=== PATIENT | female | born 1955 | race Caucasian/White ===

== ENCOUNTER → 2023-08-05 14:13 | Outpatient (REF) | payer MEDICARE, BC, SELFPAY | LOC: HWRAD 14:13 | PROVIDERS: ATTENDING PHYSICIAN Thoracic Surgery (Cardiothoracic Vascular Surgery); FAMILY PHYSICIAN Family Medicine | DX: I25.10 Atherosclerotic heart disease of native coronary artery without angina pectoris (principal) | CPT/HCPCS: 71250 ==

== ENCOUNTER 2023-08-23 05:25 | Inpatient (IN) | payer MEDICARE, BC, SELFPAY ==
[2023-08-11 08:49] VITALS: BMI 50.2
[2023-08-11 09:38] LABS: % Basophils 0.8 % (0-2); % Immature Granulocytes 0.3 % (0-0.5); % Lymphocytes 18.9 % (20.5-51.1); % Monocytes 5.9 % (1.7-9.3); % Neutrophils 70.1 % (42.2-75.2); Absolute Basophils 0.1 10^3/uL (0-0.2); Absolute Eosinophils 0.4 10^3/uL (0-0.7); Absolute Lymphocytes 1.8 10^3/uL (1.2-3.4); Absolute Monocytes 0.6 10^3/uL (0.1-0.6); Absolute Neutrophils 6.7 10^3/uL (1.4-6.5); Hemoglobin 12.9 g/dL (12.0-16.0); Mean Corp Hgb Conc. 31.5 g/dL (33.0-37.0); Mean Corpuscular Hgb 29.2 pg (27.0-31.0); Mean Corpuscular Volume 92.8 fL (81.0-99.0); Mean Platelet Volume 12.7 fL (7.4-10.4); Nucleated Red Blood Cells % 0 %; Platelet Count 254 10^3/uL (130-400); Red Blood Cell Count 4.42 10^6/uL (4.20-5.40); White Blood Cell Count 9.6 10^3/uL (4.8-10.8)
[2023-08-11 09:51] LABS: APTT 26.8 Sec (23.4-35.0); INR 0.99; PT 12.9 Sec (11.4-14.6)
[2023-08-11 09:59] LABS: ALT (SGPT) 11 U/L (0-35); AST (SGOT) 16 U/L (14-36); Albumin 4.2 g/dl (3.5-5.0); Alkaline Phosphatase 155 U/L (38-126); Blood Urea Nitrogen 28 mg/dl (7-17); Carbon Dioxide 31 mmol/L (22-30); Chloride 99 mmol/L (98-107); Direct Bilirubin 0.3 mg/dl (0.0-0.4); Estimated Creatinine Clearance 57 ml/min; Glucose 104 mg/dl (70-99); Potassium 5.1 mmol/L (3.5-5.1); Sodium 141 mmol/L (135-145); Total Bilirubin 0.4 mg/dl (0.2-1.3); Total Protein 7.5 g/dl (6.3-8.2)
[2023-08-11 09:59] LABS: Urine Albumin Trace (Neg - Trace); Urine Bilirubin 1+ (Negative); Urine Character Clear (Clear); Urine Color Yellow; Urine Glucose Negative (Negative); Urine Ketone Negative (Negative); Urine Leukocyte Negative (Negative); Urine Nitrite Negative (Negative); Urine Occult Blood Negative (Negative); Urine Specific Gravity 1.025 (<1.030); Urine Urobilinogen Negative (Neg - 1+)
--- NOTE | 2023-08-11 10:41 | CM ---
CM met w/ patient and spouse, Alok during PATs for planned CABG 08/22.
Pt. informs that she resides w/ spouse in a private, 2 story home w/ 3-4 LENA. Patient stays on the first level, sleeps on the couch, has a commode. Patient ambulates with RW at baseline.
Pt. had a recent stay in April, at [facility] following her heart attack hospitalization @ [facility]. She reports a decent experience there. She refused any VN at time of DC from that SNF.
Reviewed pre and post op routines.
Soap, shower instructions and Cardiac Surg booklet provided.
Discussed post op restrictions to include lifting, driving, flying and sternal precautions.
Reviewed post op MD appointments, Cardiac Rehab and visit from [facility] Transitional [facility] RN.
Plan is for CABG 08/22.
DC plan will depend on functional mobility post op. Goal is for home w/ [facility] Transitional Care RN but CM to monitor need for rehab.
CM to follow.
[2023-08-11 11:50] LABS: Glycohemoglobin (HgbA1c) 5.9 % (4.0-5.6)
[2023-08-23] VITALS (15 sets, daily range): BP systolic 85–133; BP diastolic 53–87; PULSE 2–75; BMI 49.0
[2023-08-23] MEDS: MAGNESIUM OXIDE 500 MG PO (05:53)
[2023-08-23] MEDS: LOPRESSOR 25 MG PO (05:53)
[2023-08-23] MEDS: PROTONIX 40 MG PO (05:53)
[2023-08-23] MEDS: BACTROBAN 2% OINTMENT 1 APPLIC NASAL ×2 (05:54→21:23)
--- NOTE | 2023-08-23 06:39 | W.CVOR.SURPR ---
CVOR Surgeon Immed Pre Op
-
I have examined this patient prior to performance of the scheduled procedure.
The patient's condition is unchanged from the time of the dictated/written History and
Physical and the patient is able to undergo the scheduled procedure.
CABG - will assess OM target, looks small on cath
Plan for ISIS E due to elevated CHADsVasc score of 3
[2023-08-23 07:11] LABS: ACT+ - POC 98 Seconds (82-134)
[2023-08-23 07:21] LABS: B.E. - POC -0.2 mmol/L; Glucose - POC 119 mg/dl (65-99); HCO3 - POC 26 mmol/L (21-29); Hematocrit - POC 44 % PCV (37-47); Hemodilution- POC No; Hemoglobin Calculated - POC 14.8; O2 Saturation %Calculated-POC 99.8 5 (92-96); PCO2 - POC 44 mmHg (35-45); PO2 - POC 231 mmHg (80-100); POC Comment PRE; Sodium - POC 144 mmol/L (135-145); pH - POC 7.37 (7.35-7.45)
[2023-08-23 07:23] LABS: Urine Albumin Negative (Neg - Trace); Urine Bilirubin Negative (Negative); Urine Character Clear (Clear); Urine Color Yellow; Urine Glucose Negative (Negative); Urine Ketone Negative (Negative); Urine Leukocyte Negative (Negative); Urine Nitrite Negative (Negative); Urine Occult Blood Negative (Negative); Urine Specific Gravity 1.025 (<1.030); Urine Urobilinogen Negative (Neg - 1+)
[2023-08-23 09:26] LABS: ACT+ - POC 814 Seconds (82-134)
[2023-08-23 09:43] LABS: B.E. - POC 3.1 mmol/L; Glucose - POC 166 mg/dl (65-99); HCO3 - POC 28 mmol/L (21-29); Hematocrit - POC 29 % PCV (37-47); Hemodilution- POC Yes; Ionized Calcium - POC 0.97 mmol/L (1.12-1.27); PCO2 - POC 41 mmHg (35-45); PO2 - POC 384 mmHg (80-100); POC Comment CPB; Potassium - POC 4.9 mmol/L (3.6-5.0); Sodium - POC 140 mmol/L (135-145); pH - POC 7.44 (7.35-7.45)
[2023-08-23 09:49] LABS: ACT+ - POC 676 Seconds (82-134)
[2023-08-23 10:15] LABS: ACT+ - POC 618 Seconds (82-134)
[2023-08-23 10:18] LABS: B.E. - POC 1.6 mmol/L; Glucose - POC 206 mg/dl (65-99); HCO3 - POC 26 mmol/L (21-29); Hematocrit - POC 33 % PCV (37-47); Hemodilution- POC Yes; Hemoglobin Calculated - POC 11.3; Ionized Calcium - POC 1.05 mmol/L (1.12-1.27); O2 Saturation %Calculated-POC 99.4 5 (92-96); PCO2 - POC 42 mmHg (35-45); PO2 - POC 153 mmHg (80-100); POC Comment REWARM; Potassium - POC 4.9 mmol/L (3.6-5.0); Sodium - POC 140 mmol/L (135-145); pH - POC 7.41 (7.35-7.45)
[2023-08-23 10:50] LABS: ACT+ - POC 126 Seconds (82-134)
[2023-08-23 10:53] LABS: B.E. - POC -0.8 mmol/L; Glucose - POC 187 mg/dl (65-99); HCO3 - POC 24 mmol/L (21-29); Hematocrit - POC 34 % PCV (37-47); Hemodilution- POC Yes; Hemoglobin Calculated - POC 11.5; Ionized Calcium - POC 1.28 mmol/L (1.12-1.27); O2 Saturation %Calculated-POC 99.9 5 (92-96); PCO2 - POC 41 mmHg (35-45); PO2 - POC 345 mmHg (80-100); POC Comment POST; Potassium - POC 4.3 mmol/L (3.6-5.0); Sodium - POC 142 mmol/L (135-145); pH - POC 7.38 (7.35-7.45)
--- NOTE | 2023-08-23 11:30 | W.PN.CT.SURG ---
CT Surgery Operative Note
-
CARDIAC SURGERY OPERATIVE REPORT
Preoperative Diagnosis: Multivessel Coronary Artery Disease with prior NSTEMI
Postoperative Diagnosis: Same
Procedure(s) Performed:
1. Standard sternotomy with aortic and right atrial cannulation
2. Coronary artery bypass grafting x 3 (In situ DYER to LAD, Ao to RSVG to high diagonal, Ao to RSVG to OM)
3. Endoscopic vein harvesting of right lower extremity
4. Rigid sternal fixation
5. Transesophageal echocardiography
6. Left atrial appendage exclusion
7. Placement of temporary ventricular pacing wires
Date of Surgery: 08/23/2023
Comorbidities:
1. Recent NSTEMI status post PCI and stenting to the RCA
2. Multivessel coronary disease involving the proximal LAD
3. Morbidly obese with a BMI of 49
4. Type 2 diabetes mellitus
5. Hypertension
6. Hyperlipidemia
7. ANANTH
8. Ischemic cardiomyopathy, LVEF of 45% with apical hypokinesis
9. Spinal stenosis with mobility issues
Attending Surgeon: Gabino Kessler MD, MS
Assistants: Amy Ace PA-C (present and necessary to assistant store manager trainee, endoscopic vein harvest, retraction, suction, exposure, suture management, and wound closure under my direction)
Anesthesiology: Hermes Villela MD and Lin [employer] & Ce Belcher CRNA
Scrub and Circulating RNs: Zara Parks RN, Nikkie Valenzuela RN
Net Finisher: Aristides Kellogg CCP
Anesthesia: GETA
EBL: per perfusion records
Products: None
CPB Time: 73 minutes
Aortic Cross Clamp Time: 61 minutes
Indication(s) for Procedures: This is a 68-year-old female who recently had an NSTEMI requiring PCI and stenting to the right coronary system in April 2023. She had residual LAD disease as well as mid circumflex disease. Due to her lesion set,
she met class I indication for surgical intervention. Her STS risk was calculated to be approximately 3.5% of mortality within 30 days. She accepted those risks and so we proceeded with surgery. Given her elevated [id number] score of over 3,
left atrial appendage was planned for exclusion to reduce risk of CVA.
Conduit(s) Quality:
DYER -excellent/bifurcated relatively early of the had enough length to reach the distal LAD at the lower diagonal system, excellent flow probe numbers with a mean flow of approximately 30-40 and a pulsatility index of less than 3
RSVG -excellent/uniform, although a little bit thin-walled, minor varicosities
Target(s) Quality:
High diagonal-excellent/disease proximally, had excellent flow on flow probe assessment as well as test dosing of antegrade with a flow of approximately 50 to 60 cc a minute at a pressure of 80 mmHg
OM -good/good flow probe numbers, antegrade cardioplegia flow of approximately 40 to 50 cc a minute at a pressure of 80 mmHg
LAD -excellent/intramyocardial, tortuous, was able to find a spot distally that accommodated the vessel. There is excellent visual flow in the LAD territory with backfilling into lower diagonal system upon release of the bulldog clamp
Implant: 35 mm clip, serial #[id number], 4-hole 60 well-appearing right for the manubrium (14 mm screws x 4), for hold square plate for the body and lower portion of the sternum (12 mm screws x 8)
Findings: Left ventricular ejection fraction preoperatively was approximately 45% with global hypokinesis. Following surgery EF did improve to approximate 55% without any regional wall motion abnormalities. Her left atrial appendage was verified
to be free of any thrombus or debris preoperatively and found to be flush with no residual flow on color Doppler following exclusion. The DYER was harvested in a skeletonized fashion. Following bypass grafting, test dose cardioplegia was given down
each distal and confirmed patency and hemostasis. She did not require any pacing following surgery, she regained her sinus rhythm with a first-degree AV block. She did not require any inotropic support coming off surgery and in fact was quite
hypertensive starting off the case. No blood products were given.
Description of Procedure: The patient was taken to the operating room. Their identity and procedure to be performed were verified and they were positioned supine on the operating table. Induction via general anesthesia with endotracheal intubation
was performed and central venous access and arterial monitoring were inserted. A preoperative transesophageal echocardiogram was performed to assess cardiac function and valvular function. The patient was then prepped and draped from chin to feet in
a sterile fashion. A preoperative time-out was performed with all members of the team present. A midline chest incision was performed along with median sternotomy. Simultaneous endoscopic access of the right lower extremity for saphenous vein
harvest was obtained along with administration of an initial 5,000 units of IV heparin. A RulTract sternal retractor was positioned to exposure the left internal mammary bed. The mammary was harvested and found to have good flow. A bulldog clamp was
applied to the distal end of the mammary after dividing it. It was wrapped in a papaverine soaked RayTec and replaced back into the left hemithorax. The RulTract was exchanged for a median sternal retractor. The innominate vein was isolated. Full
heparinization was given (a total of 50,000 units). We created a pericardial well. The aortic cannulation site was chosen where it was soft, pliable, and free of calcium. Cannulation was performed with an arterial cannula in the ascending aorta and
a triple-stage venous cannula through the right atrial appendage. The arterial cannula line had an appropriate bounce and correlating pressures with test dosing. Next, a root vent/antegrade cannula was inserted into the ascending aorta. The ACT was
confirmed to be over 400 and retrograde autologous priming was performed before commencing cardiopulmonary bypass. The pulmonary artery was away from the aorta to facilitate a clamp site. The aortic cross-clamp was placed after decreasing
the flow on the bypass and mean arterial pressure. A total of 1.2L initial dose of antegrade Del-Nido cardioplegia solution was given and planned for re-dosing every 75 minutes as necessary. There was rapid electro-mechanical arrest of the heart at
300 cc of cardioplegia. The left ventricle was observed for distention on echocardiogram and manual palpation. Cold slush was placed into a sponge and topically on the RV while we systemically cooled to 34 degrees centigrade.
With the heart arrested, it was medialized and the left atrial appendage was verified. The ligament of David was divided using electrocautery. The clip was applied flush the base of the left atrial appendage. I positioned the heart to expose
the OM vessel that appeared to be small on left heart cath. It appeared to be a decent target here and reality. A newtok blade was used to expose the coronary and perform the arteriotomy. Coronary Head scissors were used to enlarge the incision.
The saphenous vein was trimmed and beveled to an appropriate size. The distal anastomosis was performed using 7-0 prolene in an end-to-side fashion. Antegrade cardioplegia was administered into the graft. Appropriate hemostasis and flow were
confirmed. The graft was measured for length to the aorta and cut. A suitable site on the high diagonal was chosen. We dissected and prepared the distal target in a similar fashion. An end-to-side anastomosis was created with a 7-0 prolene.
Antegrade cardioplegia was administered into the graft. Appropriate hemostasis and flow were confirmed. The graft was measured for length to the aorta and cut. A suitable target on the distal left anterior descending was identified. We dissected and
prepared the distal target in a similar fashion. We retrieved the DYER from the chest and created a pericardial opening while being cognizant of the phrenic nerve to facilitate the course of the mammary. The distal end of the mammary was prepped and
beveled to size. We verified orientation and length of the MONI and found brisk flow. An end-to-side anastomosis was created with a 7-0 prolene. We temporarily released the bulldog clamp on the mammary to inspect flow. Perfusion to the LAD territory
was visualized and hemostasis was confirmed. The bull clamp was replaced on the mammary. The heart was filled and the root was distended with antegrade cardioplegia to make final assessment of graft length and orientation. We created two aortotomies
using a #11 blade then a 4.0mm aortic punch. The proximal anastomoses were created in an end-to-side fashion using 6-0 prolene. At the the same time, we re-warmed to 36.5 degrees centigrade. The bulldog clamp was removed from the mammary. Temporary
bipolar ventricular pacing wires were placed on the base of the right ventricle. The patient was placed in a Trendelenburg position and flows on bypass were lowered. The aortic cross clamp was removed and flows were slowly brought back up. All
bypass grafts were inspected and were free from kinking or twisting. The distal and proximal anastomoses appeared hemostatic. Once transesophageal echocardiography appeared satisfactory for de-airing, the flows were temporarily lowered for root
vent removal. After verifying acceptable parameters, we initiated weaning from cardiopulmonary bypass. Once we were off cardiopulmonary bypass, the venous cannula was clamped and removed. A test dose of protamine was administered and the patient was
monitored for any adverse reaction before resuming protamine. Once half of the protamine dose was delivered, pump suckers were turned off and the systolic blood pressure was lowered for aortic decannulation. The aortic cannula was removed and
pursestrings were tied down. All cannulation sites were oversewn with a 4-0 prolene. The mammary bed was inspected and hemostasis was confirmed. Once the mediastinum was hemostatic, 19Fr Sukhdev drain was placed in the left pleural cavity and two 24Fr
Sukhdev drains were placed within the pericardium. The sternum was approximated with 3 #7 and 3 #8 double stainless steel wires. The fascia was also elevated off the anterior table of the sternum. Rigid fixation was performed using the above listed
plates. Fascia was approximated with #1 vicryl suture. The subcutaneous, dermis and epidermis were closed in layers in a running fashion. The skin wound was cleansed and dressed wound VAC dressing.
All instrument, sponge, and needle counts were confirmed to be correct x 2 at the end of the operation. The patient was transferred to the cardiac intensive care unit in critical but stable condition.
I, Dr. Gabino Kessler, was present, scrubbed for, and performed all critical elements of this procedure.
Gabino Kessler MD, MS
Cardiothoracic Surgeon
[facility]
This operative dictation was created using the [employer] dictation system. Please excuse any grammatical, typographical, or 'sound alike' errors
--- NOTE | 2023-08-23 11:45 | PTCARENOTE ---
Patient received from CVOR status post CABG x 3 gonzalez to lad and RSVG to OM. Remains intubated/vented and sedated on precedex gtt. See flowrecord for vasoactive gtt titrations. Sinus bradycardia with 1st degree hb with rates in the high 50's.
Initial CI was 1.19: MAYCO Fortune aware and will obtain an MVO2 for correlation. Dr. Kessler also here: cxr indicated R mainsterm intubation with ett secured at 25cm at lip level: ETT pulled back by Dr. Kessler at bedside to 21cm at lip level and cxr
repeated at bedside to verify the proper placement of ett. Respiratory aware of changes. Chest tube x 3 and FALGUNI luca from chest (OK function flashing). Chest tubes 1 med to 1 pleur evac to -20cm wall suction and right and left pleural chest tube
to 1 pleur evac and -20cm suction: no air leak and no dumping. Right leg svg site leg incision intact and wrapped with ebony wrap. Palpable bilateral peripheral pulses.
[2023-08-23] MEDS: ANCEF 15 MG IV (11:50)
[2023-08-23 11:52] LABS: Glucose - Point of Care 188 mg/dl (70-99)
[2023-08-23 12:03] LABS: B.E. -2.5 mmol/L; HCO3 23.7 mmol/L (21-28); Hematocrit 32.4 % (37.0-47.0); Hemoglobin 10.6 g/dL (12.0-16.0); O2 Saturation % 99.3 % (94-98); PCO2 46 mmHg (32-35); PO2 103 mmHg (83-108); Platelet Count 211 10^3/uL (130-400); Potassium 4.7 mMOL/L (3.5-5.1); Sodium 136 mMOL/L (136-145); pH 7.32 (7.35-7.45)
[2023-08-23 12:06] LABS: O2 Therapy VENT
[2023-08-23 12:11] LABS: INR 1.31; PT 16.1 Sec (11.4-14.6)
[2023-08-23 12:12] LABS: APTT 27.7 Sec (23.4-35.0)
[2023-08-23 12:16] LABS: Blood Urea Nitrogen 13 mg/dl (7-17); Estimated Creatinine Clearance 100 ml/min; Glucose 170 mg/dl (70-99); Magnesium 2.7 mg/dl (1.6-2.3)
[2023-08-23 12:38] LABS: Mixed Venous O2 Saturation 55.9 %
--- NOTE | 2023-08-23 12:40 | PTCARENOTE ---
CI's continue to be low and MVO2 was 55.9 for verification. New orders received. Dobutrex intiated at 2mcg/kg/min per order a will await a response with CI/MVO2 as per cvicu protocol.
[2023-08-23] MEDS: NSS 500 IV (12:50)
[2023-08-23] MEDS: DOBUTREX 500 MG 250 IV (12:51)
[2023-08-23 13:04] LABS: Glucose - Point of Care 151 mg/dl (70-99)
--- NOTE | 2023-08-23 13:19 | W.PN.UPDATE ---
Update Note
Progress Note Update
-year-old female was electively admitted on 08/23/2023 for CABG due to triple-vessel coronary disease.
IV fluids: 2300
U.O.:� 400
Blood:� none
Wires:� V-wires
Inotropes:� none
Pressors:� Levophed on/off
Sedatives:� Precedex
�
NEURO: sedated on Precedex, pupils +3mm B/L
RESP: #8OT @24cm> 550/60%/14/5. Lungs clear B/L. 1 mediastinal (0cc on arrival) and R/L pleural (0cc on arrival) chest tubes to -20cm suction. Sanguineous drainage
CV: RRR +S1, S2, no S3, no�rub, no murmur. Dermabond to median sternotomy. RIJ w/Frannie locked @ 45cm. PA 38/21; CVP 17; CI 1.19: MVO2 55%
ABD: obese, round, soft, no BS
EXT: no edema, +1/4 DP pulses B/L, no femoral bruit, RLE GUERLINE wrap intact; left radial A-line intact
: Joseph with clear yellow urine
�
A/P: POD #0 s/p Coronary artery bypass grafting x 3 (DYER to LAD, SVG to high diagonal, SVG to OM), Left atrial appendage exclusion #35mm clip. Rigid sternal fixation
GERALD: EF�43% pre and 55% post procedure
- wean and extubate
#CAD
- Add Dobutamine for low CI/MVO2
- will require ASA/Plavix, statin
- beta uzma when off Dobutamine
�
# acute surgical blood loss anemia-expected
- trend CBC
�
�
# T2DM (A1C 5.9) w/metabolic syndrome (BMI 49) & hx gastric sleeve
- insulin infusion x 24h
- no oral meds
- t/c SGLT2i (on enaapril @ home)
�
# Spinal stenosis w/opioid tolerance
- continue home Percocet, Gabapentin
- family to bring in long acting Oxy (Xtampza 9mg BID)
# Anxiety/Depression
- resume home Duloxetine (total 90mg), Bupropion 150mg BID when tolerating orals
[2023-08-23] MEDS: PRECEDEX 100 IV (13:23)
[2023-08-23] MEDS: CYMBALTA DELAYED RELEASE PO ×2 (13:26→13:28)
--- NOTE | 2023-08-23 13:27 | CON.INTV ---
Consultation
Consultation Request
Date/Time Consultation Requested: 08/23/2023
Date/Time Consultation Performed: 08/23/2023
Requesting Provider: Dr. Kessler
Performing Provider: Dr. Gavin Camejo
Reason for Consultation: Postoperative ICU care, status post coronary artery bypass
Medical History
-
History of Present Illness:
68-year-old woman with history of multivessel coronary disease, prior stents. Ejection fraction of 45%. Electively admitted for revascularization. Underwent coronary artery bypass on 08/23/[address] Kessler.
Patient in the critical care unit. Intubated, mechanical ventilation per
Chest tube without significant air leak or excessive drainage
Records reviewed.
Patient able to provide history but appears comfortable on mechanical ventilation settings
Past Medical History
Past Medical History: Other (See assessment and plan section)
Social History
Tobacco: Former Smoker (Quit in April, [id number])
Alcohol: None
Drug: None
Living: With Family
Family History
Family History: Unable to Obtain
Allergies / Home Medications
Allergies
Allergy/AdvReac Type Severity Reaction Status Date / Time
No Known Allergies Allergy Unverified 08/10/23 13:26
Home Medications
�Medication �Instructions �Recorded �Confirmed �Last Taken �Type
Medical Cannibus 1 dose PO DAILY PRN pain, anxiety 08/10/23 08/23/23 08/22/23 20:00 History
aspirin 81 mg chewable tablet 81 mg PO DAILY 08/10/23 08/23/23 08/15/23 12:00 History
atorvastatin 40 mg tablet 40 mg PO DAILY 08/10/23 08/23/23 08/22/23 13:00 History
bupropion HCl 150 mg tablet,12 hr 150 mg PO BID 08/10/23 08/23/23 08/22/23 13:00 History
sustained-release
carvedilol 3.125 mg tablet 3.125 mg PO BID 08/10/23 08/23/23 08/22/23 13:00 History
cholecalciferol (vitamin D3) 25 25 mcg PO DAILY 08/10/23 08/23/23 08/15/23 12:00 History
mcg (1,000 unit) tablet (Vitamin
D3)
duloxetine 30 mg capsule,delayed 30 mg PO DAILY 08/10/23 08/23/23 Unknown History
release
duloxetine 60 mg capsule,delayed 60 mg PO DAILY 08/10/23 08/23/23 08/22/23 13:00 History
release
enalapril maleate 2.5 mg tablet 2.5 mg PO BID 08/10/23 08/23/23 08/15/23 13:00 History
famotidine 20 mg tablet 20 mg PO BID 08/10/23 08/23/23 08/22/23 13:00 History
furosemide 20 mg tablet 20 mg PO BID 08/10/23 08/23/23 08/22/23 13:00 History
gabapentin 100 mg capsule 200 mg PO QID 08/10/23 08/23/23 08/20/23 12:00 History
multivitamin 1 tab PO DAILY 08/10/23 08/23/23 08/15/23 12:00 History
oxycodone myristate 9 mg capsule 9 mg PO Q12H 08/10/23 08/23/23 08/22/23 09:00 History
sprinkle extended release 12
hr(DON'T CRUSH) (Xtampza ER)
oxycodone-acetaminophen 5 mg-325 1 tab PO Q6H Pain 08/10/23 08/23/23 08/22/23 09:00 History
mg tablet
ticagrelor 90 mg tablet (Brilinta) 90 mg PO BID 08/10/23 08/23/23 08/15/23 12:00 History
Review of Systems
Vitals / Labs / Diagnostic Testing
Vital Signs
Temp Pulse Resp BP Pulse Ox
96.4 F L 73 0 126/87 94
08/23/23 13:00 08/23/23 13:15 08/23/23 13:15 08/23/23 05:45 08/23/23 13:15
Lab Data
08/23/23 11:50
Laboratory Results
08/23/23
11:50
PT 16.1 H
INR 1.31
APTT 27.7
pH 7.32 L
pCO2 46 H
pO2 103
HCO3 23.7
O2 Delivery Level Vent
Diagnostic Testing:
Assessment
-
Status post coronary bypass 08/23/2023
Postoperative mechanical ventilation
Postoperative anemia
Conditions present prior admission:
Recent non-ST elevation myocardial infarction status post PCI
Ischemic cardiomyopathy ejection fraction 45%
Multivessel coronary artery disease
Morbid obesity
Type 2 diabetes
Hypertension
Hyperlipidemia
Obstructive sleep apnea
Chronic back pain with a spinal stenosis 6 mm lung nodule
Right upper lobe on CAT scan 08/05/2023
Plan recommendation:
She is doing well postop-currently on mechanical ventilation and appears comfortable.
ABG reviewed: Adequate ventilation and oxygenation
Continue SIMV mode with no change
Spontaneous breathing trial per protocol once sedation wears off.
Anemia noted-no evidence of acute bleeding
Follow H&H serially
Hemodynamics -continue to wean down inotropes as able to
Urinary output is adequate
Renal function is normal
Continue to follow hemodynamics via PA catheter.
Eventual diuresis
Chest tube with no excessive drainage-no air leak.
Chest x-ray reviewed: Right mainstem intubation. Mild asymmetric pulmonary edema.Left lung loss of volume.
ET tube readjusted.
Remain nothing by mouth
Head of the bed elevation
Lung nodule on CAT scan [id number] follow-up CT is recommended.
Glycemic control per protocol
DVT prophylaxis when safe from the surgical perspective.
Critical care statement: A total of 32 minutes of critical care time was provided for this patient today. This includes management of unstable vital signs, evaluation of the patient at bedside, reviewing the patient's pertinent medical records
including ventilator settings, arterial blood gases, radiographs, microbiology, laboratory evaluations and discussion with primary team, critical care nursing, and respiratory therapy.
[2023-08-23] MEDS: LIPITOR PO (13:28)
[2023-08-23] MEDS: PERCOCET 5/325 PO (13:44)
[2023-08-23] MEDS: TYLENOL PO (13:45)
[2023-08-23] MEDS: NEURONTIN PO (13:45)
[2023-08-23] MEDS: WELLBUTRIN SR (12 hour sustained release) PO (13:45)
[2023-08-23 14:02] LABS: Glucose - Point of Care 118 mg/dl (70-99)
[2023-08-23] MEDS: ALBUMIN 5% 250 IV (14:12)
--- NOTE | 2023-08-23 14:25 | PTCARENOTE ---
Patient is waking up and bucking vent: nods head no to pain: follows simple commands and moves all extremeties x 4 to command. CI 1.76: Bonita PULIDO aware of same. New orders. Will give 250ml 5% albumin. Will CPAP soon
--- NOTE | 2023-08-23 14:58 | CON.CAR ---
Addendum entered and electronically signed by Remy Gamez MD 08/23/23 15:59:
I saw and examined the patient.
The SUPERINTENDENT LAUNDRY or PA's note was reviewed and I agree with the note.
Comment: Sedate
Neck: Supple, no JVD, HJR, carotids +2 B/L, no bruits bilaterally.
Heart: Non displaced PMI, RRR, no murmurs, No S3, S4, no rubs.
Lungs: Scattered rhonchi
Sternal dressings
Abdomen: Normal bowel sounds, soft, non-tender, non-distended.
Extremities: No clubbing, cyanosis or edema bilaterally.
Neuro: Sedate
Leslie has a history of hypertension, hyperlipidemia, type 2 diabetes, morbid obesity with sleep apnea, chronic back pain with spinal stenosis. She had a non-STEMI in April 2023 with PCI stenting of the right coronary. She was found to have
ischemic cardiomyopathy with ejection fraction of 40 to 45%. She had residual LAD and circumflex disease and underwent CABG x 3 with left atrial appendage occlusion.
She is seen postop and is sedated at present. She is on low-dose dobutamine. Discussed with patient's family at bedside. Remains stable from cardiovascular standpoint. Will follow postoperatively.
Original Note:
Consultation
Consultation Request
Date/Time Consultation Requested: 08/23/2023
Date/Time Consultation Performed: 08/23/2023
Requesting Provider: Dr. Kessler
Performing Provider: Sia Garner PA-C for Dr. Gamez
Reason for Consultation: Post CABG cardiology care
Medical History
-
History of Present Illness:
HPI 08/23/2023:
Patient is a 68-year-old female with past medical history significant for hypertension, hyperlipidemia, type 2 diabetes, morbid obesity with obstructive sleep apnea, chronic back pain with spinal stenosis who in April 2023 had an NSTEMI requiring
PCI and stenting to the right coronary system in April 2023. She was found to have ischemic cardiomyopathy with EF of 40 to 45% and placed on GDMT. Given residual LAD disease and mid circumflex disease and was referred for consultation for CABG
and deemed to be a good candidate. Given her elevated [id number] score of over 3, left atrial appendage was planned for exclusion to reduce risk of CVA. Patient was electively admitted 08/23/2023 and underwent CABG x 3 with left atrial appendage
occlusion. Cardiology being asked to see patient for postoperative care
PMH:
Multivessel coronary disease
NSTEMI 05/07/2023 s/p RPDA RIGOBERTO
Morbidly obese with a BMI of 49
Ischemic cardiomyopathy ejection fraction 45%
Type 2 diabetes
Hypertension
Hyperlipidemia
Obstructive sleep apnea
Chronic back pain with a spinal stenosis 6 mm lung nodule on chronic pain medication
Right upper lobe on CAT scan 08/05/2023
Anxiety/depression
Past Medical History
Past Medical History: Other (See HPI)
Past Surgical History: Cardiac (RPDA RIGOBERTO 05/08/2023), Cholecystectomy (1988), Tonsilectomy and Other (Gastric sleeve 2012)
Social History
Tobacco: Former Smoker (>50 pks years, quit 04/2023)
Alcohol: Occasional
Drug: None
Personal:
Living: With Family
Family History
Family History: Other (Father of stroke)
Allergies / Home Medications
Allergy/AdvReac Type Severity Reaction Status Date / Time
No Known Allergies Allergy Unverified 08/10/23 13:26
�Medication �Instructions �Recorded �Confirmed �Type
Medical Cannibus 1 dose PO DAILY PRN pain, anxiety 08/10/23 08/23/23 History
aspirin 81 mg chewable tablet 81 mg PO DAILY 08/10/23 08/23/23 History
atorvastatin 40 mg tablet 40 mg PO DAILY 08/10/23 08/23/23 History
bupropion HCl 150 mg tablet,12 hr 150 mg PO BID 08/10/23 08/23/23 History
sustained-release
carvedilol 3.125 mg tablet 3.125 mg PO BID 08/10/23 08/23/23 History
cholecalciferol (vitamin D3) 25 25 mcg PO DAILY 08/10/23 08/23/23 History
mcg (1,000 unit) tablet (Vitamin
D3)
duloxetine 30 mg capsule,delayed 30 mg PO DAILY 08/10/23 08/23/23 History
release
duloxetine 60 mg capsule,delayed 60 mg PO DAILY 08/10/23 08/23/23 History
release
enalapril maleate 2.5 mg tablet 2.5 mg PO BID 08/10/23 08/23/23 History
famotidine 20 mg tablet 20 mg PO BID 08/10/23 08/23/23 History
furosemide 20 mg tablet 20 mg PO BID 08/10/23 08/23/23 History
gabapentin 100 mg capsule 200 mg PO QID 08/10/23 08/23/23 History
multivitamin 1 tab PO DAILY 08/10/23 08/23/23 History
oxycodone myristate 9 mg capsule 9 mg PO Q12H 08/10/23 08/23/23 History
sprinkle extended release 12
hr(DON'T CRUSH) (Xtampza ER)
oxycodone-acetaminophen 5 mg-325 1 tab PO Q6H Pain 08/10/23 08/23/23 History
mg tablet
ticagrelor 90 mg tablet (Brilinta) 90 mg PO BID 08/10/23 08/23/23 History
Review of Systems
-
History Source: Patient
All other systems: Negative unless noted
Physical Exam
Vital Signs
Temp Pulse Resp BP Pulse Ox
97.5 F 82 11 126/87 94
08/23/23 14:20 08/23/23 14:45 08/23/23 14:45 08/23/23 05:45 08/23/23 14:45
GEN: Intubated and sedated
HEENT: supple, anicteric, mmm
LUNGS: CTA, no wheezes/rales
CV: Reg, S1/S2, no murmur, rub or gallop
ABD: soft, BS+, NT/ND
EXT: Right leg wrapped in Renny dressing, no edema bilaterally
NEURO: Remains lightly sedated but opening eyes on command and moving extremities
SKIN: No rash, warm, dry, pink
Lab Results
08/23/23 11:50
Impression / Plan
-
PCP: Priyanka Ramirez
Manager Action: Lawson Abdullahi
Impression:
Multivessel CAD
s/p NSTEMI w/ RDPA RIGOBERTO 05/07/2024
s/p CABG x 3 (In situ DYER to LAD, SVG to high diagonal, SVG to OM) 08/23/2023 Dr. Kessler
Left atrial appendage occlusion 08/23/2023 Dr. Kessler
Ischemic cardiomyopathy ejection fraction 45%
Morbid obesity
Type 2 diabetes
Hypertension
Hyperlipidemia
Obstructive sleep apnea
Chronic back pain with a spinal stenosis 6 mm lung nodule on chronic pain medication
Right upper lobe on CAT scan 08/05/2023
Anxiety/depression
GERALD IntraOp 08/23/2023: EF 43.6%, mild concentric LVH grade 3 atheromatous disease in aorta. Left atrial appendage is normal without thrombus. No significant valvular disease
Echo April 2023: EF 55 to 60%. Grade 1 DD. Mild concentric LVH. Moderate MAC.
LHC 05/08/2023 ([facility]): LM 30-40% distal stenosis. LAD mid 70 to 75% with an aneurysmal segment at origin of large diagonal vessel. LCX: Severely diseased with 90% proximal to mid stenosis, chronic total occlusion of first OM. RCA: Mid 30 to 40%,
RPDA 100% status post PCI/RIGOBERTO. LVEF 45% with inferior wall hypokinesis and apical hypokinesis
Plan:
-Elective admission for MVCAD s/p CABG x 3 (In situ DYER to LAD, SVG to high diagonal, SVG to OM) & Left atrial appendage occlusion 08/23/2023 Dr. Kessler
-Patient seen immediately postop. Remains intubated and sedated.
-Plan is to wean sedation and extubate later this afternoon
-Hemodynamically stable requiring 2.5 mcg/kg/min; wean as hemodynamics allow
-Postop hemoglobin 10.6, Has not received any blood products
-Postop EKG sinus bradycardia at 55 beats per minute without suggestion of ischemia
-Eventual resumption of GDMT for CAD/NSTEMI/ICM which include atorvastatin, aspirin, beta-uzma, Plavix or Brilinta and low-dose RENNY inhibitor
-Will require dual antiplatelet therapy for minimum of 6 months following NSTEMI April 2023
HPI 08/23/2023:
Patient is a 68-year-old female with past medical history significant for hypertension, hyperlipidemia, type 2 diabetes, morbid obesity with obstructive sleep apnea, chronic back pain with spinal stenosis who in April 2023 had an NSTEMI requiring
PCI and stenting to the right coronary system in April 2023. She was found to have ischemic cardiomyopathy with EF of 40 to 45% and placed on GDMT. Given residual LAD disease and mid circumflex disease and was referred for consultation for CABG
and deemed to be a good candidate. Given her elevated [id number] score of over 3, left atrial appendage was planned for exclusion to reduce risk of CVA. Patient was electively admitted 08/23/2023 and underwent CABG x 3 with left atrial appendage
occlusion.
Data Reviewed
-
EKG: Report Reviewed by me, Discussed with Physician, Discussed with Nurse and Discussed with Family
Labs: Labs Reviewed by me, Discussed with Physician, Discussed with Patient and Discussed with Family
Old Records: Reviewed
[2023-08-23 15:28] LABS: Glucose - Point of Care 111 mg/dl (70-99)
[2023-08-23] MEDS: PACERONE PO (15:55)
[2023-08-23 15:58] LABS: B.E. -1.2 mmol/L; HCO3 24.3 mmol/L (21-28); Ionized Calcium 1.14 mMOL/L (1.15-1.33); O2 Saturation % 99.1 % (94-98); PCO2 43 mmHg (32-35); PO2 108 mmHg (83-108); Potassium 4.2 mMOL/L (3.5-5.1); pH 7.36 (7.35-7.45)
[2023-08-23 16:00] LABS: Mixed Venous O2 Saturation 71.9 %
[2023-08-23 16:05] LABS: Hematocrit 31.4 % (37.0-47.0); Hemoglobin 10.5 g/dL (12.0-16.0); Platelet Count 206 10^3/uL (130-400)
--- NOTE | 2023-08-23 16:05 | PTCARENOTE ---
ABG's good for extubation on CPAP: patient is sustained awake and following simple commands and moving all extremeties x 4 with equal bilateral strength. [place], CT sugical PA aware of ABG results and MVO2 improvements on dobutrex: new orders
receive. OK to extubate to nasal canula. Family at bedside and aware of same and updated
--- NOTE | 2023-08-23 16:05 | CM ---
pt in OR, cm to follow
[2023-08-23 16:45] LABS: Glucose - Point of Care 100 mg/dl (70-99)
[2023-08-23] MEDS: CALCIUM CHLORIDE 10% SYRINGE 50 ML IV (16:49)
[2023-08-23] MEDS: CALCIUM CHLORIDE 10% SYRINGE 50 MG IV (16:49)
[2023-08-23] MEDS: LOW STRENGTH ASPIRIN 81 MG PO (16:50)
[2023-08-23] MEDS: PERCOCET 5/325 1 TABLET PO (18:08)
[2023-08-23] MEDS: ANCEF 5 IV (18:09)
[2023-08-23] MEDS: NEURONTIN 200 MG PO ×2 (18:09→21:22)
[2023-08-23 18:21] LABS: Glucose - Point of Care 104 mg/dl (70-99)
[2023-08-23 20:40] LABS: Glucose - Point of Care 115 mg/dl (70-99)
[2023-08-23] MEDS: PACERONE 200 MG PO (21:22)
[2023-08-23] MEDS: TYLENOL 1000 MG PO (21:22)
[2023-08-23] MEDS: WELLBUTRIN SR (12 hour sustained release) 150 MG PO (21:22)
[2023-08-23] MEDS: SENOKOT-S 1 TABLET PO (21:22)
--- NOTE | 2023-08-23 21:41 | PTCARENOTE ---
Assumed care of patient at 1900. Patient found in bed sleeping at the time of assessment. Patient is found to be AOx4, follows commands appropriately, moves all extremities, noticeably drowsy and generalized weakness is present. Lung sounds are
diminished in the bases, patient is on Bipap settings of 16/6 receiving 4L O2 saO2 at 95%. Patient has CTx3 R/L pleural, medx1 with FALGUNI drain. Heart sounds have a regular rate and rhythm, there is a rub present on auscultation. Patient has normal
palpable pulses in the radials and dorsalis pedis. There is +1 generalized anasarca present. Patient has round obese abdomen, hypoactive BS and moore catheter draining clear yellow urine. Patient has sternal incision with FALGUNI dressing that is CDI,
RLE incision approx with surg adhesive SALAZAR with GUERLINE wrap, and... Patient has R IJ cordis with swan @ 45cm, L radial A line and L hand 20 G PIV. Patient is receiving the following gtts: Insulin@1.3, Cardene@5, and Cordis/VIP KVO. Vital signs as
follows T-98.6 P-75 BP-128/56 MAP-76 RR-16 CVP-6 PAP 28/15.
[2023-08-23 22:37] LABS: Glucose - Point of Care 109 mg/dl (70-99)
[2023-08-24] VITALS (26 sets, daily range): BP systolic 99–146; BP diastolic 52–80; PULSE 2–81; O2SAT 97–98; BMI 49.8
--- NOTE | 2023-08-24 | PTCARENOTE ---
Patient reassessed. VSS. Off cardene since 2019. Remains on Dobut @2. Remains on bipap. Remains SR on the monitor. Patient is stable.
[2023-08-24 00:36] LABS: Glucose - Point of Care 118 mg/dl (70-99)
[2023-08-24] MEDS: PERCOCET 5/325 1 TABLET PO ×4 (01:06→17:54)
[2023-08-24] MEDS: ANCEF 5 IV ×2 (01:06→10:26)
[2023-08-24] MEDS: ALBUMIN 5% 250 IV (01:09)
[2023-08-24 02:32] LABS: Glucose - Point of Care 91 mg/dl (70-99)
[2023-08-24 03:33] LABS: Hematocrit 29.8 % (37.0-47.0); Hemoglobin 9.7 g/dL (12.0-16.0); Mean Corp Hgb Conc. 32.6 g/dL (33.0-37.0); Mean Corpuscular Hgb 29.2 pg (27.0-31.0); Mean Corpuscular Volume 89.8 fL (81.0-99.0); Mean Platelet Volume 12.1 fL (7.4-10.4); Platelet Count 170 10^3/uL (130-400); Red Blood Cell Count 3.32 10^6/uL (4.20-5.40); Red Cell Dist. Width 15.2 % (11.5-14.5); White Blood Cell Count 20.5 10^3/uL (4.8-10.8)
--- NOTE | 2023-08-24 03:45 | W.PN.CT ---
Today's Communication / Plan
-
Plan:
-No major issues overnight. Hemodynamically and neurologically intact
-Successfully extubated on 08/22 @ 1606
-Weaned dobutamine from 2 to 1 overnight. Remains on insulin gtt per protocol
-Last CI 2.01 on dobutamine @ 1, mixed venous O2 is pending, U/O since OR 1075 mL
-Noted to be in acute postop sinus bradycardia (55 bpm). Consider holding Amiodarone and BB today
-Cont. current meds (ASA, Plavix, Lipitor)
-Monitor chest tube output: Med 45/110, R/L pls 115/235
-A-line non-functional and d/c'd this AM @ 0500
-D/C swan once able to wean off dobutamine
-D/C moore catheter later today
-Telemetry phase tomorrow once off insulin gtt per protocol
-Maintain cordis
-Maintain temporary PW (will pull before d/c home)
-Wean off of O2 as tolerated
-Encourage use of IS
-OOB into chair/Ambulate
-PT/OT consult given spinal stenosis with ambulatory dysfunction
Assessment / Plan
-
Assessment:
-S/p CABG x 3 (In situ DYER to LAD, Ao to RSVG to high diagonal, Ao to RSVG to OM)/R EVH/ LAAE/ RSF by Dr. Kessler, 08/23/23, pod#1
-Multivessel coronary disease involving the proximal LAD-
-NSTEMI s/p PCI with RIGOBERTO to RPDA, 05/07/23
-[place]
-ICM (EF 43.6% improved to 55-60% postop per intraop GERALD)
-HTN
-HLD
-T2DM (A1C 5.9)
-Class 3 obesity (BMI 49)
-ANANTH (uses BIPAP)
-Former tobacco abuse x 50yrs, quit 04/2023
-Spinal stenosis/chronic back pain/ ambulatory dysfunction
-Anxiety/Depression
-S/P gastric sleeve, 2012
-Tonsillectomy
-Cholecystectomy, 1988
-Acute postop blood loss/anemia (stable without blood transfusion)
-Acute postop atelectasis
-Acute postop hypovolemia with subsequent hypervolemia
-Acute postop sinus bradycardia (55 bpm)
Discussed patient care with: Cardiology, Nursing, Respiratory Therapy, Pharmacy and Care Team
Subjective
Procedure
CABG x 3 (In situ DYER to LAD, Ao to RSVG to high diagonal, Ao to RSVG to OM)/R EVH/ LAAE/ RSF by Dr. Kessler, 08/23/23,
-
Date of Service: August 24, 2023
Pt c/o incisional pain, relieved by current analgesic, otherwise feel well
Objective Data
-
Lab Results
08/24/23 03:21
PT 16.1 Sec (11.4-14.6) H 08/23/23 11:50
INR 1.31 08/23/23 11:50
APTT 27.7 Sec (23.4-35.0) 08/23/23 11:50
Vital Signs
Vital Signs
Temp Pulse Resp BP Pulse Ox
97.4 F 83 16 146/80 100
08/24/23 03:00 08/24/23 03:05 08/24/23 03:05 08/24/23 03:05 08/24/23 03:05
CT Intake/Output/Weight
08/23/23 08/23/23 08/24/23
06:59 18:59 06:59
Intake Total 789.1 / 1245.7 456.6 / 1245.7
Output Total 640 / 1275 635 / 1275
Balance 149.1 / -29.3 -178.4 / -29.3
SaO2: 96 (2L)
Physical Exam
-
General: Awake, Oriented and AOx3
Cardiovascular: Regular rate & rhythm, No Murmurs, Rub (likely friction rub from chest tubes) and No Gallop
Respiratory: Decreased Breath Sounds (at bases, otherwise clear)
Sternum: Stable
Incision: Clean, Dry, Intact and Dressing Intact
Extremities: Other (+trace edema)
Data Reviewed
-
Lab Results: Results Reviewed
Medications: Active Meds Reviewed
Chest X-Ray: Report Reviewed and Image Reviewed
ECG: Report Reviewed and Image Reviewed
[2023-08-24 05:02] LABS: Glucose - Point of Care 112 mg/dl (70-99)
[2023-08-24 05:12] LABS: Blood Urea Nitrogen 15 mg/dl (7-17); Calcium 8.8 mg/dl (8.4-10.2); Carbon Dioxide 27 mmol/L (22-30); Chloride 106 mmol/L (98-107); Estimated Creatinine Clearance 100 ml/min; Glucose 101 mg/dl (70-99); Magnesium 2.1 mg/dl (1.6-2.3); Potassium 4.3 mmol/L (3.5-5.1); Sodium 140 mmol/L (135-145); eGFR > 60.00
--- NOTE | 2023-08-24 05:40 | PTCARENOTE ---
Patient reassessed. VSS. Dobut tapered to 1mcg. Orders received to remove A line. Will maintain swan for now given need for dobut still. Bipap removed patient placed on 6L via NC saO2 99% able to then wean to 2L saO2 at 96%. AM labs obtained. AM
hygiene care provided. Patient remains SR on the monitor. Patient is stable.
[2023-08-24 05:48] LABS: Mixed Venous O2 Saturation 71.2 %
[2023-08-24 07:01] LABS: Glucose - Point of Care 113 mg/dl (70-99)
--- NOTE | 2023-08-24 07:30 | PTCARENOTE ---
Assumed care of patient from night warehouse manager RN. AAO x 3 sitting up in the chair. SR on monitor. RT IJ cordis with swan at 45 cm. Epicardial wire to back up of VVI 50 no pacing noted at present. 2 L NC 98%.. IS to 750. Chest tubes x 3 to - 20 cm
suction. No air leak or crepitus noted. FALGUNI drain secure with proper suction . Sternal incision dressing c,d,i. RT leg ebony wrap intact. Abdomen obese with hypoactive bowel sounds noted. Joseph draining theodore urine. General anasarca trace.
Pulses palpable. Plan for day discussed. Drips infusing on assessment Dobutamine and insulin. See flowsheet for totals/titrations.
--- NOTE | 2023-08-24 07:37 | W.PN.ANS.POP ---
Anesthesia Post Operative
- Anesthesia Post Op Note
Vital Signs Stable-See Nursing Note: Yes
Airway Patent: Yes
Adequate Pain Control: Yes
Change in Mental Status: No
Current Postoperative Nausea & Vomiting: No
Anesthesia Complications: No
General Anesthetic Recall: No
Unplanned Admission: No
Post Op Hydration Adequate: Yes
- -
patient resting comfortably in chair on room air. No questions, comments, or complaints.
[2023-08-24] MEDS: TYLENOL PO (07:42)
[2023-08-24 07:59] LABS: Glucose - Point of Care 109 mg/dl (70-99)
[2023-08-24] MEDS: PROTONIX 40 MG PO (08:40)
[2023-08-24] MEDS: LOW STRENGTH ASPIRIN 81 MG PO (08:40)
[2023-08-24] MEDS: CYMBALTA DELAYED RELEASE 30 MG PO (08:40)
[2023-08-24] MEDS: NEURONTIN 200 MG PO ×4 (08:40→21:54)
[2023-08-24] MEDS: WELLBUTRIN SR (12 hour sustained release) 150 MG PO ×2 (08:40→20:06)
[2023-08-24] MEDS: PLAVIX 75 MG PO (08:40)
[2023-08-24] MEDS: BACTROBAN 2% OINTMENT 1 APPLIC NASAL ×2 (08:40→20:00)
[2023-08-24] MEDS: LIPITOR 40 MG PO (08:41)
[2023-08-24] MEDS: MAGNESIUM OXIDE 500 MG PO ×2 (08:41→20:05)
[2023-08-24] MEDS: CYMBALTA DELAYED RELEASE 60 MG PO (08:41)
[2023-08-24] MEDS: SENOKOT-S 1 TABLET PO ×2 (08:41→20:06)
[2023-08-24] MEDS: VITAMIN C 500 MG PO (08:41)
[2023-08-24] MEDS: LIDOCAINE 4% PATCH TOPICAL (08:41)
--- NOTE | 2023-08-24 09:34 | W.PN.CARDCBS ---
Addendum entered and electronically signed by Chuy Olivas MD 08/24/23 10:52:
I saw and examined the patient.
The Continuity Tester's note was reviewed and I agree with the note.
Comment: Briefly, 68-year-old woman past medical history of multivessel CAD and ischemic cardiomyopathy (LVEF 45%) who underwent PCI in April 2023 who now presents for surgical revascularization of her residual coronary disease and underwent CABG
x 3 on 08/23/2023
Currently doing well postoperatively, out of bed to chair
Remains on low-dose dobutamine
Filling pressures are reasonable based on invasive hemodynamics
Maintaining normal sinus rhythm on telemetry
Agree with current cardiac meds
We will continue to follow
Original Note:
Today's Communication / Plan
-
Continue post op care
Impression / Plan
-
PCP: Priyanka Ramirez
Director Of Quality Improvement: Lawson Abdullahi
Impression:
Multivessel CAD
s/p NSTEMI w/ RDPA RIGOBERTO 05/07/2023
s/p CABG x 3 (In situ DYER to LAD, SVG to high diagonal, SVG to OM) 08/23/2023 Dr. Kessler
Left atrial appendage occlusion 08/23/2023 Dr. Kessler
Ischemic cardiomyopathy, EF 45%
Morbid obesity
Type 2 diabetes
Hypertension
Hyperlipidemia
Obstructive sleep apnea
Chronic back pain with a spinal stenosis 6 mm lung nodule on chronic pain medication
Right upper lobe on CAT scan 08/05/2023
Anxiety/depression
GERALD IntraOp 08/23/2023: EF 43.6%, mild concentric LVH grade 3 atheromatous disease in aorta. Left atrial appendage is normal without thrombus. No significant valvular disease
Echo April 2023: EF 55 to 60%. Grade 1 DD. Mild concentric LVH. Moderate MAC.
LHC 05/08/2023 ([facility]): LM 30-40% distal stenosis. LAD mid 70 to 75% with an aneurysmal segment at origin of large diagonal vessel. LCX: Severely diseased with 90% proximal to mid stenosis, chronic total occlusion of first OM. RCA: Mid 30 to 40%,
RPDA 100% status post PCI/RIGOBERTO. LVEF 45% with inferior wall hypokinesis and apical hypokinesis
Plan:
-Patient is s/p CABG x 3 (In situ DYER to LAD, SVG to high diagonal, SVG to OM) & ISIS occlusion 08/23/2023.
-Doing well this AM, extubated 08/22.
-Weaning dobutamine, down to 1 this AM.
-Post op EKG stable, sinus bradycardia. Amio and Lopressor held this AM. Resume as able.
-Continue aspirin and Plavix. Hgb 9.7 this AM, continue to follow.
-Continue atorvastatin
-Eventual resumption of GDMT (low dose GUERLINE) as BP allows.
-Will require dual antiplatelet therapy for minimum of 6 months following NSTEMI April 2023
-Continue post op care, IS/OOB
HPI 08/23/2023:
Patient is a 68-year-old female with past medical history significant for hypertension, hyperlipidemia, type 2 diabetes, morbid obesity with obstructive sleep apnea, chronic back pain with spinal stenosis who in April 2023 had an NSTEMI requiring
PCI and stenting to the right coronary system in April 2023. She was found to have ischemic cardiomyopathy with EF of 40 to 45% and placed on GDMT. Given residual LAD disease and mid circumflex disease and was referred for consultation for CABG
and deemed to be a good candidate. Given her elevated [id number] score of over 3, left atrial appendage was planned for exclusion to reduce risk of CVA. Patient was electively admitted 08/23/2023 and underwent CABG x 3 with left atrial appendage
occlusion.
Progress Note - Director Of Quality Improvement
Subjective
Date of Service: August 24, 2023
No complaints.
Objective
Labs:
08/24/23 03:21
08/24/23 04:16
Labs
Hgb 9.7 g/dL (12.0-16.0) L 08/24/23 03:21
Hct 29.8 % (37.0-47.0) L 08/24/23 03:21
Plt Count 170 10^3/uL (130-400) 08/24/23 03:21
PT 16.1 Sec (11.4-14.6) H 08/23/23 11:50
INR 1.31 08/23/23 11:50
APTT 27.7 Sec (23.4-35.0) 08/23/23 11:50
Sodium 140 mmol/L (135-145) 08/24/23 04:16
Potassium 4.3 mmol/L (3.5-5.1) 08/24/23 04:16
BUN 15 mg/dl (7-17) 08/24/23 04:16
Creatinine 0.7 mg/dL (0.6-1.0) 08/24/23 04:16
Glucose 101 mg/dl (70-99) H 08/24/23 04:16
Vital Signs and I&O:
Vital Signs
Temp Pulse Resp BP Pulse Ox
98.5 F 80 18 111/77 97
08/24/23 08:00 08/24/23 08:00 08/24/23 08:00 08/24/23 08:00 08/24/23 08:00
Vital Signs
Temp Pulse Resp BP Pulse Ox
98.5 F 80 18 111/77 97
08/24/23 08:00 08/24/23 08:00 08/24/23 08:00 08/24/23 08:00 08/24/23 08:00
Intake & Output
08/22/23 08/23/23 08/24/23 08/25/23
06:59 06:59 06:59 06:59
Intake Total 1614.6 / 1614.6 26.2 / 26.2
Output Total 1420 / 1420 50 / 50
Balance 194.6 / 194.6 -23.8 / -23.8
Physical Exam
Physical Exam
GEN: NAD,awake, alert, oriented x3
HEENT: supple, anicteric, mmm
LUNGS: CTA, no wheezes/rales
CV: Reg, S1/S2, no murmur
EXT: No clubbing, cyanosis, or edema
SKIN: No rash, warm, dry, pink
[2023-08-24 10:25] LABS: Glucose - Point of Care 113 mg/dl (70-99)
[2023-08-24] MEDS: LASIX 40 MG IV (10:26)
--- NOTE | 2023-08-24 11:28 | W.PN.INTV ---
Today's Communication / Plan
Recommendations
Continue postoperative care
Follow chest tube output
Increase activity as able
Advance diet
Continue analgesia
Patient aware of lung nodule. She usually has her primary wire spiral binder Dr. Handy.
Outpatient reevaluation of obstructive sleep apnea. Follow-up with Dr. Handy
Sign off
Assessment
-
Status post coronary bypass 08/23/2023
Postoperative mechanical ventilation
Postoperative anemia
Conditions present prior admission:
Recent non-ST elevation myocardial infarction status post PCI
Ischemic cardiomyopathy ejection fraction 45%
Multivessel coronary artery disease
Morbid obesity
Type 2 diabetes
Hypertension
Hyperlipidemia
Obstructive sleep apnea
Chronic back pain with a spinal stenosis 6 mm lung nodule
Right upper lobe on CAT scan 08/05/2023
Plan recommendation:
Extubated 08/23/2023
On low rate supplemental oxygen
Encourage incentive spirometry
Increase activity as able
Analgesia with narcotics will continue as needed.
Anemia noted-no evidence of acute bleeding
Follow H&H serially
Hemodynamics -off vasoactive drugs.
Adequate urinary output.
Normal renal function
Continue to follow daily.
Chest tube with no excessive drainage-no air leak.
Chest x-ray reviewed 08/24/2023: Postoperative changes. ET tube has been discontinued.
Advance diet as tolerated
Head of the bed elevation
Right lower lobe 6 mm lung nodule on CAT scan [id number] follow-up CT is recommended. Pt follows up with Dr. Handy, wire spiral binder.
I also recommended her to reevaluate her ANANTH.
Glycemic control per protocol
DVT prophylaxis when safe from the surgical perspective.
-
No additional recommendations from the pulmonary perspective.
At this point I will sign off.
Please call with question.
Subjective Dataa
Subjective Data
Date of Service:
Date of Service: August 24, 2023
Chief Complaint: Welt Drawer Follow Up (Status post coronary artery bypass)
Subjective:
Extubated on low rate supplemental oxygen
No major overnight events
No specific complaints this morning.
Pain is controlled
Review of Systems
Cardiopulmonary: Dyspnea (none at rest), Cough (n) and Sputum Production (n)
GI: Abdominal Pain (n) and Nausea (n)
Objective Data
Data Reviewed
Vital Signs / I&O / Oxygen:
Vital Signs
Temp Pulse Resp BP Pulse Ox
98.5 F 76 18 111/77 97
08/24/23 08:00 08/24/23 09:45 08/24/23 08:00 08/24/23 08:00 08/24/23 08:45
Intake and Output
08/23/23 08/24/23 08/25/23
06:59 06:59 06:59
Intake Total 1614.6 / 1614.6 26.2 / 26.2
Output Total 1420 / 1420 50 / 50
Balance 194.6 / 194.6 -23.8 / -23.8
SaO2 [CPAP/PSV] 95
SaO2 [SIMV] 92
SaO2 97
Nasal Cannula flow liters per 2
minute
Physical Exam
General: Respiratory Distress (n) and Comfortable
HEENT: Normocephalic
Cardiovascular: S1-S2
Respiratory: Clear and Non-Labored Respirations
GI: Soft and Non Distended
Neurology: Awake
Labs/Micro/Reports
Lab Data
08/24/23 03:21
08/24/23 04:16
Laboratory Results
08/23/23 08/23/23
11:50 15:42
PT 16.1 H
INR 1.31
APTT 27.7
pH 7.32 L 7.36
pCO2 46 H 43 H
pO2 103 108
HCO3 23.7 24.3
O2 Delivery Level Vent
[2023-08-24 11:53] LABS: Glucose - Point of Care 92 mg/dl (70-99)
[2023-08-24] MEDS: NSS IV (12:16)
[2023-08-24] MEDS: FERRLECIT 110 MG IV (13:35)
--- NOTE | 2023-08-24 14:01 | PTCARENOTE ---
Heavy assist x 2 back to bed from chair. Once back to bed Rt IJ swan removed. No ectopy noted. Joseph cath then removed. Pt instructed on time and amount. Pure wick instituted. Both Pleural chest tubes removed also.. Pt tolerated w/o issue.
Resting in bed after. Vss
[2023-08-24] MEDS: PACERONE 200 MG PO ×2 (17:07→21:53)
[2023-08-24] MEDS: MYCOSTATIN CREAM 1 APPLIC TOPICAL (20:00)
--- NOTE | 2023-08-24 20:00 | PTCARENOTE ---
Assumed care of patient at 1900. Patient found in bed at time of assessment. Patient is AOx4, follows commands appropriately, moves all extremities. Lung sounds are diminished at the bases, coarse throughout. Patient is on 2L via NC saO2 at 93% will
wear CPAP HS. Patient has CTx1 in the mediastinum draining serosanguineous. Heart sounds have a regular rate and rhythm. Patient is SR on the monitor with occasional PVCs. Patient has normal palpable pulses with trace generalized anasarca. Patient
has active BS present in all four quadrants of round obese abdomen. There is a purewick in place draining clear yellow urine. Patient has sternal incision with FALGUNI drain dressing that is CDI and RLE incision approximated with surg adhesive [facility].
Patient has R IJ cordis receiving KVO and L hand 20G PIV available for intermittent infusion. VSS. Patient has no complaints at this time.
[2023-08-24] MEDS: LOPRESSOR 12.5 MG PO (20:05)
[2023-08-24 23:59] LABS: Glucose - Point of Care 128 mg/dl (70-99)
[2023-08-25] VITALS (18 sets, daily range): BP systolic 92–155; BP diastolic 56–127; PULSE 2–92; O2SAT 98; BMI 49.5
[2023-08-25] MEDS: PERCOCET 5/325 1 TABLET PO ×5 (00:25→23:10)
--- NOTE | 2023-08-25 03:41 | PTCARENOTE ---
Patient reassessed. VSS. Remains SR on the monitor. Pain managed with scheduled mediations. No complaints at this time.
[2023-08-25 04:31] LABS: Hemoglobin 9.2 g/dL (12.0-16.0); Mean Corp Hgb Conc. 32.9 g/dL (33.0-37.0); Mean Corpuscular Hgb 28.9 pg (27.0-31.0); Mean Corpuscular Volume 88.1 fL (81.0-99.0); Mean Platelet Volume 12.2 fL (7.4-10.4); Platelet Count 176 10^3/uL (130-400); Red Blood Cell Count 3.18 10^6/uL (4.20-5.40); Red Cell Dist. Width 15.3 % (11.5-14.5); White Blood Cell Count 16.9 10^3/uL (4.8-10.8)
[2023-08-25 04:56] LABS: Blood Urea Nitrogen 21 mg/dl (7-17); Calcium 8.8 mg/dl (8.4-10.2); Carbon Dioxide 29 mmol/L (22-30); Chloride 102 mmol/L (98-107); Estimated Creatinine Clearance 88 ml/min; Glucose 120 mg/dl (70-99); Magnesium 1.9 mg/dl (1.6-2.3); Potassium 4.2 mmol/L (3.5-5.1); Sodium 136 mmol/L (135-145); eGFR > 60.00
--- NOTE | 2023-08-25 06:42 | W.PN.CT ---
Today's Communication / Plan
-
-pod #2
-no issues overnight
-CT output (? L pleural) 40/100 in 12/24 hrs, no air leak
-no drips
-current meds (ASA, Plavix, Lipitor, Lopressor, Amio, iv Iron, vit C)
-encourage IS, OOB
Assessment / Plan
-
Assessment:
-S/p CABG x 3 (In situ DYER to LAD, Ao to RSVG to high diagonal, Ao to RSVG to OM)/R EVH/ LAAE/ RSF by Dr. Kessler, 08/23/23, pod#2
-Multivessel coronary disease involving the proximal LAD-
-NSTEMI s/p PCI with RIGOBERTO to RPDA, 05/07/23
-USA
-ICM (EF 43.6% improved to 55-60% postop per intraop GERALD)
-HTN
-HLD
-T2DM (A1C 5.9)
-Class 3 obesity (BMI 49)
-ANANTH (uses BIPAP)
-Former tobacco abuse x 50yrs, quit 04/2023
-Spinal stenosis/chronic back pain/ ambulatory dysfunction
-Anxiety/Depression
-S/P gastric sleeve, 2012
-Tonsillectomy
-Cholecystectomy, 1988
-Acute postop blood loss/anemia (stable without blood transfusion)
-Acute postop atelectasis
-Acute postop hypovolemia with subsequent hypervolemia
-Acute postop sinus bradycardia (55 bpm)
Discussed patient care with: Nursing and Care Team
Subjective
Procedure
CABG x 3 (In situ DYER to LAD, Ao to RSVG to high diagonal, Ao to RSVG to OM)/R EVH/ LAAE/ RSF by Dr. Kessler, 08/23/23,
-
Date of Service: August 25, 2023
Objective Data
-
Lab Results
08/25/23 04:18
08/25/23 04:18
PT 16.1 Sec (11.4-14.6) H 08/23/23 11:50
INR 1.31 08/23/23 11:50
APTT 27.7 Sec (23.4-35.0) 08/23/23 11:50
Vital Signs
Vital Signs
Temp Pulse Resp BP Pulse Ox
97.9 F 66 18 113/84 97
08/25/23 03:00 08/25/23 04:15 08/25/23 03:00 08/25/23 03:00 08/25/23 03:00
CT Intake/Output/Weight
08/24/23 08/24/23 08/25/23
06:59 18:59 06:59
Intake Total 825.5 / 1614.6 692.8 / 752.8 60 / 752.8
Output Total 780 / 1420 1920 / 2160 240 / 2160
Balance 45.5 / 194.6 -1227.2 / -1407.2 -180 / -1407.2
SaO2: 97
Physical Exam
-
General: Awake and AOx3
Cardiovascular: Regular rate & rhythm, No Murmurs and No Rub
Respiratory: Decreased Breath Sounds
Sternum: Stable
Incision: Clean, Dry and Intact (has Davidson pump at chest incision)
Extremities: Other (trace edema b/l with 2+ DPs b/l)
Abdomen: soft, nontender, + decreased bowel sounds, nondistended
Data Reviewed
-
Lab Results: Results Reviewed
Medications: Active Meds Reviewed
Chest X-Ray: Report Reviewed and Image Reviewed
ECG: Report Reviewed and Image Reviewed
--- NOTE | 2023-08-25 07:30 | PTCARENOTE ---
Received pt from shift supervisor melting RN; pt AAOX3 and resting comfortably in chair; NSR on monitor and VSS; Epicardial V wire insulated; RIJ cordis and PIV patent; Lungs diminished; CT x1 to -20 wall suction no air leak and no crepitus noted; hypoactive
bowel sounds; pure wick in place and pt voiding clear yellow urine; palpable pulses throughout; trace generalized edema noted; surgical sites C/D/I, FALGUNI dressing C/D/I; see nursing documentation for further details.
[2023-08-25 07:33] LABS: Glucose - Point of Care 153 mg/dl (70-99)
[2023-08-25] MEDS: PACERONE 200 MG PO ×3 (07:53→21:19)
[2023-08-25] MEDS: CYMBALTA DELAYED RELEASE 30 MG PO (07:53)
[2023-08-25] MEDS: BACTROBAN 2% OINTMENT 1 APPLIC NASAL ×2 (07:53→21:18)
[2023-08-25] MEDS: CYMBALTA DELAYED RELEASE 60 MG PO (07:53)
[2023-08-25] MEDS: VITAMIN C 500 MG PO (07:53)
[2023-08-25] MEDS: MAGNESIUM OXIDE 500 MG PO ×2 (07:53→21:18)
[2023-08-25] MEDS: PLAVIX 75 MG PO (07:53)
[2023-08-25] MEDS: LOPRESSOR 12.5 MG PO ×2 (07:53→21:19)
[2023-08-25] MEDS: WELLBUTRIN SR (12 hour sustained release) 150 MG PO ×2 (07:54→21:18)
[2023-08-25] MEDS: LIPITOR 40 MG PO (07:54)
[2023-08-25] MEDS: LOW STRENGTH ASPIRIN 81 MG PO (07:54)
[2023-08-25] MEDS: NEURONTIN 200 MG PO ×4 (07:54→21:18)
[2023-08-25] MEDS: PROTONIX 40 MG PO (07:54)
[2023-08-25] MEDS: SENOKOT-S 1 TABLET PO ×2 (07:54→21:19)
[2023-08-25] MEDS: LIDOCAINE 4% PATCH 1 PATCH TOPICAL (07:55)
[2023-08-25] MEDS: MYCOSTATIN CREAM 1 APPLIC TOPICAL ×2 (07:56→21:19)
[2023-08-25] MEDS: KCL 20 MEQ PO (08:41)
[2023-08-25] MEDS: LASIX 40 MG IV (08:41)
--- NOTE | 2023-08-25 11:18 | PTCARENOTE ---
Epicardial V wire removed by CV BOX STAPLER.
--- NOTE | 2023-08-25 11:40 | W.PN.CARDCBS ---
Addendum entered and electronically signed by Aakash Urias MD 08/25/23 15:00:
I saw and examined the patient.
The Sole Stainer's note was reviewed and I agree with the note.
Comment:
GEN: No distress, awake, Ox3
HEENT: supple, anicteric, mmm
LUNGS: scatt rhonchi
CV: Reg, S1/S2, 6 syst LSB, gallop
ABD: soft, BS+, NT/ND
EXT: No edema
NEURO: Gross non-focal
SKIN: No rash
Plan:
continue Amio/lopressor
cont ASA/plavix
doing well.
Original Note:
Today's Communication / Plan
-
Continue post op care
Impression / Plan
-
PCP: Priyanka Ramirez
Liquefaction Supervisor: Lawson Abdullahi
Impression:
Multivessel CAD
s/p NSTEMI w/ RDPA RIGOBERTO 05/07/2023
s/p CABG x 3 (In situ DYER to LAD, SVG to high diagonal, SVG to OM) 08/23/2023 Dr. Kessler
Left atrial appendage occlusion 08/23/2023 Dr. Kessler
Ischemic cardiomyopathy, EF 45%
Morbid obesity
Type 2 diabetes
Hypertension
Hyperlipidemia
Obstructive sleep apnea
Chronic back pain with a spinal stenosis 6 mm lung nodule on chronic pain medication
Right upper lobe on CAT scan 08/05/2023
Anxiety/depression
GERALD IntraOp 08/23/2023: EF 43.6%, mild concentric LVH grade 3 atheromatous disease in aorta. Left atrial appendage is normal without thrombus. No significant valvular disease
Echo April 2023: EF 55 to 60%. Grade 1 DD. Mild concentric LVH. Moderate MAC.
LHC 05/08/2023 ([facility]): LM 30-40% distal stenosis. LAD mid 70 to 75% with an aneurysmal segment at origin of large diagonal vessel. LCX: Severely diseased with 90% proximal to mid stenosis, chronic total occlusion of first OM. RCA: Mid 30 to 40%,
RPDA 100% status post PCI/RIGOBERTO. LVEF 45% with inferior wall hypokinesis and apical hypokinesis
Plan:
-Patient is s/p CABG x 3 (In situ DYER to LAD, SVG to high diagonal, SVG to OM) & ISIS occlusion 08/23/2023.
-Doing well this AM, no complaints.
-Post op EKG stable. HRs stable on review of telemetry. Continue amio and lopressor.
-Continue aspirin and Plavix. Hgb 9.2 this AM, continue to follow.
-Continue atorvastatin
-Eventual resumption of GDMT (low dose GUERLINE) as BP allows.
-Will require dual antiplatelet therapy for minimum of 6 months following NSTEMI April 2023
-Continue post op care, IS/OOB
HPI 08/23/2023:
Patient is a 68-year-old female with past medical history significant for hypertension, hyperlipidemia, type 2 diabetes, morbid obesity with obstructive sleep apnea, chronic back pain with spinal stenosis who in April 2023 had an NSTEMI requiring
PCI and stenting to the right coronary system in April 2023. She was found to have ischemic cardiomyopathy with EF of 40 to 45% and placed on GDMT. Given residual LAD disease and mid circumflex disease and was referred for consultation for CABG
and deemed to be a good candidate. Given her elevated [id number] score of over 3, left atrial appendage was planned for exclusion to reduce risk of CVA. Patient was electively admitted 08/23/2023 and underwent CABG x 3 with left atrial appendage
occlusion.
Progress Note - Liquefaction Supervisor
Subjective
Date of Service: August 25, 2023
No complaints.
Objective
Labs:
08/25/23 04:18
08/25/23 04:18
Labs
Hgb 9.2 g/dL (12.0-16.0) L 08/25/23 04:18
Hct 28.0 % (37.0-47.0) L 08/25/23 04:18
Plt Count 176 10^3/uL (130-400) 08/25/23 04:18
PT 16.1 Sec (11.4-14.6) H 08/23/23 11:50
INR 1.31 08/23/23 11:50
APTT 27.7 Sec (23.4-35.0) 08/23/23 11:50
Sodium 136 mmol/L (135-145) 08/25/23 04:18
Potassium 4.2 mmol/L (3.5-5.1) 08/25/23 04:18
BUN 21 mg/dl (7-17) H 08/25/23 04:18
Creatinine 0.8 mg/dL (0.6-1.0) 08/25/23 04:18
Glucose 120 mg/dl (70-99) H 08/25/23 04:18
Vital Signs and I&O:
Vital Signs
Temp Pulse Resp BP Pulse Ox
99.1 F 76 20 120/59 98
08/25/23 08:00 08/25/23 08:00 08/25/23 08:00 08/25/23 07:53 08/25/23 09:39
Vital Signs
Temp Pulse Resp BP Pulse Ox
99.1 F 76 20 120/59 98
08/25/23 08:00 08/25/23 08:00 08/25/23 08:00 08/25/23 07:53 08/25/23 09:39
Intake & Output
08/23/23 08/24/23 08/25/23 08/26/23
06:59 06:59 06:59 06:59
Intake Total 1614.6 / 1614.6 752.8 / 752.8 80 / 80
Output Total 1420 / 1420 2160 / 2160 945 / 945
Balance 194.6 / 194.6 -1407.2 / -1407.2 -865 / -865
Physical Exam
Physical Exam
GEN: NAD,awake, alert, oriented x3
HEENT: supple, anicteric, mmm
LUNGS: CTA, no wheezes/rales
CV: Reg, S1/S2, no murmur
EXT: No clubbing, cyanosis, or edema
SKIN: No rash, warm, dry, pink
--- NOTE | 2023-08-25 12:59 | PTCARENOTE ---
NSR on monitor and VSS; assessment unchanged; Mediastinal Chest tube removed per order.
[2023-08-25] MEDS: FERRLECIT 110 MG IV (14:44)
--- NOTE | 2023-08-25 16:05 | CM ---
spoke to pt in room, she is agreeable to go to rehab. she would like [facility] or [facility]. referrals faxed, await bed avail. i anticipate she may be ready [facility] or [facility].
[2023-08-25] MEDS: NSS IV (17:15)
--- NOTE | 2023-08-25 20:00 | PTCARENOTE ---
assumed care of pt from previous RN. pt A&Ox4, resting in chair at time of assessment. SR on tele-monitor, HR 70s. trace generalized edema noted. palpable peripheral pulses. POX 97% on 2 L NC. abd s/n, round, obese. +BS. pt voiding clear, theodore
urine. purewick in place to wall suction. sternal incision w/ Davidson dressing. R groin puncture and leg incision approximated, GREASER AND OILER. R IJ cordis w/ KVO. PIV intact. plan of care discussed w/ pt, pt in agreement. see worklist for complete nursing
assessment, interventions, VS, and I&Os.
[2023-08-26] VITALS (9 sets, daily range): BP systolic 94–121; BP diastolic 56–78; PULSE 2–98
--- NOTE | 2023-08-26 | PTCARENOTE ---
assessment remains unchanged. VSS.
--- NOTE | 2023-08-26 03:04 | W.PN.CT ---
Today's Communication / Plan
-
-pod #3
-no issues overnight
-no drips
-diuresed over 1450 cc with Bumex on 08/24
-current meds (ASA, Plavix, Lipitor, Lopressor, Amio, iv Iron, vit C)
-continue PT/OT, ambulate
-encourage IS, OOB
-will d/c to acute rehab when bed available
-appreciate everyone's input
Assessment / Plan
-
Assessment:
-S/p CABG x 3 (In situ DYER to LAD, Ao to RSVG to high diagonal, Ao to RSVG to OM)/R EVH/ LAAE/ RSF by Dr. Kessler, 08/23/23, pod#3
-Multivessel coronary disease involving the proximal LAD-
-NSTEMI s/p PCI with RIGOBERTO to RPDA, 05/07/23
-USA
-ICM (EF 43.6% improved to 55-60% postop per intraop GERALD)
-HTN
-HLD
-T2DM (A1C 5.9)
-Class 3 obesity (BMI 49)
-ANANTH (uses BIPAP)
-Former tobacco abuse x 50yrs, quit 04/2023
-Spinal stenosis/chronic back pain/ ambulatory dysfunction
-Anxiety/Depression
-S/P gastric sleeve, 2012
-Tonsillectomy
-Cholecystectomy, 1988
-Acute postop blood loss/anemia (stable without blood transfusion)
-Acute postop atelectasis
-Acute postop hypovolemia with subsequent hypervolemia
-Acute postop sinus bradycardia (55 bpm)
Discussed patient care with: Nursing and Care Team
Subjective
Procedure
CABG x 3 (In situ DYER to LAD, Ao to RSVG to high diagonal, Ao to RSVG to OM)/R EVH/ LAAE/ RSF by Dr. Kessler, 08/23/23,
-
Date of Service: August 26, 2023
Objective Data
-
PT 16.1 Sec (11.4-14.6) H 08/23/23 11:50
INR 1.31 08/23/23 11:50
APTT 27.7 Sec (23.4-35.0) 08/23/23 11:50
Vital Signs
Vital Signs
Temp Pulse Resp BP Pulse Ox
98.4 F 61 20 94/78 91
08/26/23 00:00 08/26/23 00:09 08/26/23 00:00 08/26/23 00:09 08/26/23 00:09
CT Intake/Output/Weight
08/25/23 08/25/23 08/26/23
06:59 18:59 06:59
Intake Total 60 / 752.8 190 / 270 80 / 270
Output Total 240 / 2160 1545 / 1645 100 / 1645
Balance -180 / -1407.2 -1355 / -1375 -20 / -1375
SaO2: 91
Physical Exam
-
General: Awake and AOx3
Cardiovascular: Regular rate & rhythm, No Murmurs and No Rub
Respiratory: Decreased Breath Sounds
Sternum: Stable
Incision: Clean, Dry and Intact (has Davidson pump at chest incision)
Abdomen: soft, nontender, + decreased bowel sounds, nondistended
Extremities: Other (trace edema b/l with 2+ DPs b/l)
Data Reviewed
-
Lab Results: Results Reviewed
Medications: Active Meds Reviewed
Chest X-Ray: Report Reviewed and Image Reviewed
ECG: Report Reviewed and Image Reviewed
--- NOTE | 2023-08-26 04:00 | PTCARENOTE ---
assessment remains unchanged. VSS. AM labs collected and sent.
[2023-08-26 04:10] LABS: Hematocrit 27.9 % (37.0-47.0); Mean Corp Hgb Conc. 32.3 g/dL (33.0-37.0); Mean Corpuscular Hgb 29.3 pg (27.0-31.0); Mean Corpuscular Volume 90.9 fL (81.0-99.0); Platelet Count 161 10^3/uL (130-400); Red Blood Cell Count 3.07 10^6/uL (4.20-5.40); Red Cell Dist. Width 15.1 % (11.5-14.5); White Blood Cell Count 15.6 10^3/uL (4.8-10.8)
[2023-08-26 04:59] LABS: Blood Urea Nitrogen 26 mg/dl (7-17); Calcium 9.1 mg/dl (8.4-10.2); Carbon Dioxide 29 mmol/L (22-30); Chloride 99 mmol/L (98-107); Estimated Creatinine Clearance 88 ml/min; Glucose 110 mg/dl (70-99); Magnesium 1.9 mg/dl (1.6-2.3); Potassium 4.5 mmol/L (3.5-5.1); Sodium 135 mmol/L (135-145); eGFR > 60.00
[2023-08-26] MEDS: PLAVIX 75 MG PO (08:29)
[2023-08-26] MEDS: MAGNESIUM OXIDE 500 MG PO ×2 (08:30→19:58)
[2023-08-26] MEDS: NEURONTIN 200 MG PO ×4 (08:30→22:56)
[2023-08-26] MEDS: PROTONIX 40 MG PO (08:30)
[2023-08-26] MEDS: CYMBALTA DELAYED RELEASE 30 MG PO (08:30)
[2023-08-26] MEDS: LOPRESSOR 12.5 MG PO ×2 (08:30→19:57)
[2023-08-26] MEDS: VITAMIN C 500 MG PO (08:30)
[2023-08-26] MEDS: LOW STRENGTH ASPIRIN 81 MG PO (08:30)
[2023-08-26] MEDS: LIPITOR 40 MG PO (08:30)
[2023-08-26] MEDS: WELLBUTRIN SR (12 hour sustained release) 150 MG PO ×2 (08:31→19:59)
[2023-08-26] MEDS: SENOKOT-S 1 TABLET PO (08:31)
[2023-08-26] MEDS: PACERONE 200 MG PO ×3 (08:31→22:56)
[2023-08-26] MEDS: CYMBALTA DELAYED RELEASE 60 MG PO (08:31)
[2023-08-26] MEDS: PERCOCET 5/325 1 TABLET PO ×4 (08:31→22:57)
[2023-08-26] MEDS: LIDOCAINE 4% PATCH 1 PATCH TOPICAL (08:32)
[2023-08-26] MEDS: BACTROBAN 2% OINTMENT 1 APPLIC NASAL ×2 (08:33→19:57)
--- NOTE | 2023-08-26 09:01 | PTCARENOTE ---
Rec'd pt this shift awake and alert in chair. Pt assisted to bed side commode with rolling walker. Pt NSR on monitor, RA, lungs clear. AM meds given. See worklist for VS/I and O and assessments.
--- NOTE | 2023-08-26 10:50 | W.PN.CARDCBS ---
Addendum entered and electronically signed by Cruz Adamson MD 08/26/23 17:10:
Patient with some incisional discomfort.
PMH/PSH/SH/FH: Reviewed
Allergies: None
Outpatient meds, current meds: Reviewed
ROS: Negative except as above
98/67, pulse 69, respirate 18, afebrile, head neck exam unremarkable, incisions intact, lungs with limited exam but relatively clear, regular rate and rhythm without obvious murmurs, abdomen obese, not much edema
Hemoglobin 9, platelets 161, BUN and creatinine 26 and 0.8
Chest x-ray cardiomegaly, possible mild congestion, small left effusion, atriclip
Impression: See below
Plan:
Overall doing well postop day 3
Anticipate transfer to [facility] in AM.
Original Note:
Today's Communication / Plan
-
Continue post op care
Impression / Plan
-
PCP: Priyanka Ramirez
Rebar Worker: Lawson Abdullahi
Impression:
Multivessel CAD
s/p NSTEMI w/ RDPA RIGOBERTO 05/07/2023
s/p CABG x 3 (In situ DYER to LAD, SVG to high diagonal, SVG to OM) 08/23/2023 Dr. Kessler
Left atrial appendage occlusion 08/23/2023 Dr. Kessler
Ischemic cardiomyopathy, EF 45%
Morbid obesity
Type 2 diabetes
Hypertension
Hyperlipidemia
Obstructive sleep apnea
Chronic back pain with a spinal stenosis 6 mm lung nodule on chronic pain medication
Right upper lobe on CAT scan 08/05/2023
Anxiety/depression
GERALD IntraOp 08/23/2023: EF 43.6%, mild concentric LVH grade 3 atheromatous disease in aorta. Left atrial appendage is normal without thrombus. No significant valvular disease
Echo April 2023: EF 55 to 60%. Grade 1 DD. Mild concentric LVH. Moderate MAC.
C 05/08/2023 ([facility]): LM 30-40% distal stenosis. LAD mid 70 to 75% with an aneurysmal segment at origin of large diagonal vessel. LCX: Severely diseased with 90% proximal to mid stenosis, chronic total occlusion of first OM. RCA: Mid 30 to 40%,
RPDA 100% status post PCI/RIGOBERTO. LVEF 45% with inferior wall hypokinesis and apical hypokinesis
Plan:
-Patient is s/p CABG x 3 (In situ DYER to LAD, SVG to high diagonal, SVG to OM) & ISIS occlusion 08/23/2023.
-POD #3. Doing well this AM, no complaints.
-Diuresing with IV lasix. Creat stable at 0.8. Weight 288lbs 08/24.
-Post op EKG stable. HRs stable on review of telemetry. Continue amio and lopressor.
-Continue aspirin and Plavix. Hgb 9.0 this AM, continue to follow.
-Continue atorvastatin
-Eventual resumption of GDMT (low dose GUERLINE) as BP allows.
-Will require dual antiplatelet therapy for minimum of 6 months following NSTEMI April 2023
-Continue post op care, IS/OOB
HPI 08/23/2023:
Patient is a 68-year-old female with past medical history significant for hypertension, hyperlipidemia, type 2 diabetes, morbid obesity with obstructive sleep apnea, chronic back pain with spinal stenosis who in April 2023 had an NSTEMI requiring
PCI and stenting to the right coronary system in April 2023. She was found to have ischemic cardiomyopathy with EF of 40 to 45% and placed on GDMT. Given residual LAD disease and mid circumflex disease and was referred for consultation for CABG
and deemed to be a good candidate. Given her elevated [id number] score of over 3, left atrial appendage was planned for exclusion to reduce risk of CVA. Patient was electively admitted 08/23/2023 and underwent CABG x 3 with left atrial appendage
occlusion.
Progress Note - Rebar Worker
Subjective
Date of Service: August 26, 2023
No complaints. Working w/ PT.
Objective
Labs:
08/26/23 03:58
08/26/23 03:58
Labs
Hgb 9.0 g/dL (12.0-16.0) L 08/26/23 03:58
Hct 27.9 % (37.0-47.0) L 08/26/23 03:58
Plt Count 161 10^3/uL (130-400) 08/26/23 03:58
PT 16.1 Sec (11.4-14.6) H 08/23/23 11:50
INR 1.31 08/23/23 11:50
APTT 27.7 Sec (23.4-35.0) 08/23/23 11:50
Sodium 135 mmol/L (135-145) 08/26/23 03:58
Potassium 4.5 mmol/L (3.5-5.1) 08/26/23 03:58
BUN 26 mg/dl (7-17) H 08/26/23 03:58
Creatinine 0.8 mg/dL (0.6-1.0) 08/26/23 03:58
Glucose 110 mg/dl (70-99) H 08/26/23 03:58
Vital Signs and I&O:
Vital Signs
Temp Pulse Resp BP Pulse Ox
98.6 F 71 16 96/66 98
08/26/23 04:00 08/26/23 08:31 08/26/23 08:29 08/26/23 08:31 08/26/23 08:53
Vital Signs
Temp Pulse Resp BP Pulse Ox
98.6 F 71 16 96/66 98
08/26/23 04:00 08/26/23 08:31 08/26/23 08:29 08/26/23 08:31 08/26/23 08:53
Intake & Output
08/24/23 08/25/23 08/26/23 08/27/23
06:59 06:59 06:59 06:59
Intake Total 1614.6 / 1614.6 752.8 / 752.8 310 / 310
Output Total 1420 / 1420 2160 / 2160 1645 / 1645
Balance 194.6 / 194.6 -1407.2 / -1407.2 -1335 / -1335
Physical Exam
Physical Exam
GEN: NAD,awake, alert, oriented x3
HEENT: supple, anicteric, mmm
LUNGS: CTA, no wheezes/rales
CV: Reg, S1/S2, no murmur
EXT: No clubbing, cyanosis, or edema
SKIN: No rash, warm, dry, pink
[2023-08-26] MEDS: LASIX 40 MG PO (11:17)
[2023-08-26] MEDS: NSS 500 IV (11:18)
--- NOTE | 2023-08-26 12:37 | CM ---
spoke to pt about acute rehab, she is agreeable to go, and would [facility]. referral faxed, they will have a bed for her this weekend
[2023-08-26] MEDS: MYCOSTATIN CREAM TOPICAL (12:44)
[2023-08-26] MEDS: FERRLECIT 110 MG IV (13:33)
[2023-08-26] MEDS: TYLENOL 325 MG PO (15:54)
--- NOTE | 2023-08-26 16:28 | PTCARENOTE ---
Received patient from CVICU to room 2252. Sternal dressing with Pica drain is dry and intact. Remains in SR on the monitor. Patient complained of left breast/incisional pain. Notified CT surgery PA and patient given additional tylenol PO. Pulse ox
98% on RA, no other changes in the patient's assessment from the patient's previous assessment. Patient assisted from the chair back to bed. Requires assist of two to get to standing position. Call glover in reach, at the bedside.
[2023-08-26] MEDS: MYCOSTATIN CREAM 1 APPLIC TOPICAL (19:58)
[2023-08-26] MEDS: SENOKOT-S PO (19:59)
[2023-08-27] VITALS (11 sets, daily range): BP systolic 104–168; BP diastolic 59–156; PULSE 2–94; BMI 48.8
--- NOTE | 2023-08-27 00:33 | PTCARENOTE ---
Pt.'s sternal Davidson dressing box flashing red alert this shift. Site intact with a small amount of old drainage on dressing. Pt. states site is tender but no worse than it has been. MICHAEL Mak, notified & came to bedside to assess. Area
reinforced with Tegaderm dressing, 4x4 dressing applied to open chest tube wounds and Tegaderm applied to help better seal bottom of sternal wound dressing. Box now flashing green. Percocet and Tylenol offering effective sternal pain management.
Otherwise pt. does well OOB with assist of one and RW. Looking forward to discharge to [place] in the morning.
[2023-08-27 01:47] LABS: Hematocrit 30.7 % (37.0-47.0); Hemoglobin 9.9 g/dL (12.0-16.0); Mean Corp Hgb Conc. 32.2 g/dL (33.0-37.0); Mean Corpuscular Hgb 29.5 pg (27.0-31.0); Mean Corpuscular Volume 91.4 fL (81.0-99.0); Mean Platelet Volume 12.3 fL (7.4-10.4); Platelet Count 215 10^3/uL (130-400); Red Blood Cell Count 3.36 10^6/uL (4.20-5.40); White Blood Cell Count 17.1 10^3/uL (4.8-10.8)
[2023-08-27 02:16] LABS: Blood Urea Nitrogen 23 mg/dl (7-17); Carbon Dioxide 30 mmol/L (22-30); Chloride 99 mmol/L (98-107); Estimated Creatinine Clearance 100 ml/min; Glucose 117 mg/dl (70-99); Magnesium 1.9 mg/dl (1.6-2.3); Potassium 4.8 mmol/L (3.5-5.1); Sodium 138 mmol/L (135-145); eGFR > 60.00
--- NOTE | 2023-08-27 07:15 | W.PN.CT ---
Today's Communication / Plan
-
-pod #5
-no significant issues overnight, no complaints
-continue current meds
-continue PT/OT
-d/c to [facility] when bed available
Assessment / Plan
-
Assessment:
-S/p CABG x 3 (In situ DYER to LAD, Ao to RSVG to high diagonal, Ao to RSVG to OM)/R EVH/ LAAE/ RSF by Dr. Kessler, 08/23/23, pod#4
-Multivessel coronary disease involving the proximal LAD-
-NSTEMI s/p PCI with RIGOBERTO to RPDA, 05/07/23
-[place]
-ICM (EF 43.6% improved to 55-60% postop per intraop GERALD)
-HTN
-HLD
-T2DM (A1C 5.9)
-Class 3 obesity (BMI 49)
-ANANTH (uses BIPAP)
-Former tobacco abuse x 50yrs, quit 04/2023
-Spinal stenosis/chronic back pain/ ambulatory dysfunction
-Anxiety/Depression
-S/P gastric sleeve, 2012
-Tonsillectomy
-Cholecystectomy, 1988
-Acute postop blood loss/anemia (stable without blood transfusion)
-Acute postop atelectasis
-Acute postop hypovolemia with subsequent hypervolemia
-Acute postop sinus bradycardia (55 bpm)
Discussed patient care with: Nursing and Care Team
Subjective
Procedure
CABG x 3 (In situ DYER to LAD, Ao to RSVG to high diagonal, Ao to RSVG to OM)/R EVH/ LAAE/ RSF by Dr. Kessler, 08/23/23,
-
Date of Service: August 27, 2023
Objective Data
-
Lab Results
08/27/23 01:34
08/27/23 01:34
PT 16.1 Sec (11.4-14.6) H 08/23/23 11:50
INR 1.31 08/23/23 11:50
APTT 27.7 Sec (23.4-35.0) 08/23/23 11:50
Vital Signs
Vital Signs
Temp Pulse Resp BP Pulse Ox
97.7 F 62 20 120/63 97
08/27/23 01:44 08/27/23 04:00 08/27/23 01:44 08/27/23 01:40 08/27/23 01:44
CT Intake/Output/Weight
08/26/23 08/27/23 08/27/23
18:59 06:59 18:59
Intake Total 200 / 680 480 / 680
Balance 200 / 680 480 / 680
SaO2: 97
Physical Exam
-
General: Awake and AOx3
Cardiovascular: Regular rate & rhythm, No Murmurs and No Rub
Respiratory: Decreased Breath Sounds
Sternum: Stable
Incision: Clean, Dry and Intact
Extremities: No Edema
Data Reviewed
-
Lab Results: Results Reviewed
Medications: Active Meds Reviewed
Chest X-Ray: Report Reviewed and Image Reviewed
ECG: Report Reviewed and Image Reviewed
[2023-08-27] MEDS: PACERONE 200 MG PO (08:23)
[2023-08-27] MEDS: LIDOCAINE 4% PATCH 1 PATCH TOPICAL (08:23)
[2023-08-27] MEDS: VITAMIN C 500 MG PO (08:23)
[2023-08-27] MEDS: PLAVIX 75 MG PO (08:23)
[2023-08-27] MEDS: PERCOCET 5/325 1 TABLET PO ×2 (08:23→12:56)
[2023-08-27] MEDS: LOW STRENGTH ASPIRIN 81 MG PO (08:23)
[2023-08-27] MEDS: PROTONIX 40 MG PO (08:23)
[2023-08-27] MEDS: SENOKOT-S 1 TABLET PO (08:24)
[2023-08-27] MEDS: TOPROL XL 25 MG PO (08:24)
[2023-08-27] MEDS: NEURONTIN 200 MG PO ×2 (08:24→12:57)
[2023-08-27] MEDS: LIPITOR 40 MG PO (08:25)
[2023-08-27] MEDS: WELLBUTRIN SR (12 hour sustained release) 150 MG PO (08:25)
[2023-08-27] MEDS: BACTROBAN 2% OINTMENT 1 APPLIC NASAL (08:25)
[2023-08-27] MEDS: MYCOSTATIN CREAM 1 APPLIC TOPICAL (08:25)
[2023-08-27] MEDS: CYMBALTA DELAYED RELEASE 60 MG PO (08:25)
[2023-08-27] MEDS: CYMBALTA DELAYED RELEASE 30 MG PO (08:25)
[2023-08-27] MEDS: MAGNESIUM OXIDE 500 MG PO (08:25)
--- NOTE | 2023-08-27 11:42 | W.DCSUMMARY ---
Discharge Summary
Discharge Data
Date of Admission: 08/23/23
Date of Discharge: 08/27/23
Total time spent discharging patient (in min): 40
-
Pending Results: No
Hospital Course
Primary care physician:
Ashley
Outpatient railroad construction director:
Dr. Abdullahi
Inpatient consultants:
DCA, glove cutter
Procedures:
1. Coronary artery bypass grafting x 3
Primary Diagnosis:
1. Multivessel coronary artery disease
Secondary Diagnoses:
1. Recent N-STEMI status post PCI and stenting to the RCA
2. Morbidly obese with a BMI of 49
3. Type 2 diabetes mellitus
4. Hypertension
5. Hyperlipidemia
6. Obstructive sleep apnea
7. Ischemic cardiomyopathy, left ventricular ejection fraction of 45% with apical hypokinesis
8. Spinal stenosis with mobility issues
HPI: 68-year-old female seen in the office by Dr. Kessler presented electively on 08/22 for her coronary artery bypass surgery.
Hospital course: Patient presented electively on 08/22. Postoperatively she returned to the CVICU on dobutamine, Levophed, Precedex, and insulin infusions. Dobutamine was for a low cardiac index. Patient's Precedex was weaned off and patient was
extubated by 1606 to BiPAP 16/6. On 08/23 postoperative day #1 mixed venous was 71% and dobutamine was weaned off. Beta-blockers and amiodarone were resumed. Inman-Kaiden catheter was removed. Postoperative iron was ordered for anemia. Physical
therapy/Occupational Therapy was consulted. Mediastinal chest tube removed. On 08/24 postoperative day #2 patient's epicardial wires were pulled and remaining chest tubes were subsequently removed after. Patient was diuresed with 2 mg of Bumex
with good response. On 08/25 postoperative day #3 patient continued to work with physical therapy. She was diuresed with Lasix 40 mg p.o. Cordis was removed. And patient transferred to telemetry. On 6/15 postoperative day #4 patient's dimple
dressing was removed. 2 view chest x-ray remained stable. Blood pressure medications were uptitrated due to hypertension and patient was deemed stable for discharge to [place] [facility].
Home medication changes:
See below
Discharge Plan
-
Patient Disposition: Acute Rehab Facility
Discharge Diagnosis/Procedures: CABG
Condition: Fair
Diet: Low Cholesterol and 2 Gram Sodium
Activity: No strenuous activity
Driving Restrictions: Not until seen by your Dr
Bathing Restrictions: OK to Shower
Other Services: Cardiac Rehab
Specialty Instructions: Weigh Daily- Call MD for wt gain/loss 3 lbs overnight/5 lbs in 1 week
Activity Restrictions/Additional Instructions:
ACTIVITY:
-No strenuous activity: no heavy lifting, pushing, pulling anything over 15 pounds for one month
-continue to use stairs as tolerated
DRIVING RESTRICTIONS:
-No driving for one month or until approved by your surgeon
WOUND CARE:
-Shower daily. Use soap & water.
-No lotions, creams or powders on incision area.
DIET:
-continue a low fat/low cholesterol diet.
-IF you are diabetic, continue carb controlled diet.
CARDIAC REHAB:
-Please make appointment to start in 5-6 weeks with your local hospital program. (See Cardiac Rehabilitation Discharge Booklet).
SPECIALTY INSTRUCTIONS:
-Weigh yourself daily. Call your physician for any weight gain/loss of 3 lbs overnight or 5 lbs in one week.
-REPORT any clicking noise or uneven appearance of your sternum to your surgeon immediately.
-If you smoke, you are instructed to quit. The [place] smoking hotline phone number is [phone]
Referrals:
CT Transitional Care Nurse [Outside]
(
The Cardiothoracic Transitional Care Nurse will call you to set up a visit in 1-2 days.)
Nadwodny,Priyanka A., DO [Family Provider] -
Kessler,Gabino, MD [Active] - 09/21/23 2:30 pm
Lawson Abdullahi MD [Active] - 10/17/23 2:40 pm ( your appt with Dr Abdullahi on Nov 07 @ 940 am was CANCELLED)
Prescriptions:
New
oxycodone-acetaminophen 5-325 mg Tablet
1 tab PO Q6 Qty: 30 0RF
clopidogrel 75 mg Tablet
75 mg PO DAILY Qty: 0 0RF
sennosides-docusate sodium [Stool Softener-Stimulant Laxat] 8.6-50 mg Tablet
1 tab PO Q12 Qty: 0 0RF
pantoprazole 40 mg Tablet,Delayed Release (Dr/Ec)
40 mg PO DAILY Qty: 0 0RF
bisacodyl 10 mg Suppository
10 mg DC DAILYPRN PRN (Reason: constipation ) Qty: 0 0RF
ascorbic acid (vitamin C) [Vitamin C] 500 mg Tablet
500 mg PO DAILY Qty: 0 0RF
metoprolol succinate 25 mg Tablet Extended Release 24 Hr
25 mg PO DAILY Qty: 0 0RF
Continued
multivitamin Tablet
1 tab PO DAILY
atorvastatin 40 mg Tablet
40 mg PO DAILY
bupropion HCl 150 mg Tablet Sustained-Release 12 Hr
150 mg PO BID
aspirin 81 mg Tablet,Chewable
81 mg PO DAILY
furosemide 20 mg Tablet
20 mg PO BID
gabapentin 100 mg Capsule
200 mg PO QID
duloxetine 30 mg Capsule,Delayed Release(Dr/Ec)
30 mg PO DAILY
duloxetine 60 mg Capsule,Delayed Release(Dr/Ec)
60 mg PO DAILY
cholecalciferol (vitamin D3) [Vitamin D3] 25 mcg (1,000 unit) Tablet
25 mcg PO DAILY
Xtampza ER 9 mg Cap,Sprinkl,Er12hr(Dont Crush)
9 mg PO Q12H
Medical Cannibus
1 dose PO DAILY PRN (Reason: pain, anxiety)
Discontinued
enalapril maleate 2.5 mg Tablet
2.5 mg PO BID
carvedilol 3.125 mg Tablet
3.125 mg PO BID
oxycodone-acetaminophen 5-325 mg Tablet
1 tab PO Q6H
Brilinta 90 mg Tablet
90 mg PO BID
No Action
famotidine 20 mg Tablet
20 mg PO BID
Discharge Orders:
Discharge Patient (As Directed); Ordered 08/27/23
Ordered By: Padma Mcginnis
Care Plan Goals
Care Plan Goals:
Problem: Readiness for enhanced knowledge related to diagnosis and treatment plan
Goal: Understand your diagnosis and treatment plan needs, including medications if applicable.
Instructions: Know your diagnosis, underlying causes and treatment plan options, including medications if applicable. Consult with your health care team to learn about your diagnosis and treatment plan, including medications if applicable.
Discharge Date and Time
Print Language: ZIMBABWEAN
[2023-08-27] MEDS: NSS IV (12:09)
--- NOTE | 2023-08-27 14:40 | PTCARENOTE ---
08/27/23 1345 D/C order given for rehab. Report called to [facility] at [facility], Plan of care reviewed. Paperwork/Chart copied. [facility] without [facility].
== END 2023-08-27 15:11 | DRG 236 ==
LOC: IVU 05:25
PROVIDERS: Anesthesiology; Nurse Practitioner; ADMITTING PHYSICIAN Thoracic Surgery (Cardiothoracic Vascular Surgery); CONSULT PHYSICIAN Internal Medicine Critical Care Medicine; FAMILY PHYSICIAN Family Medicine; OTHER PHYSICIAN Internal Medicine Cardiovascular Disease
PROC: 5A1221Z Performance of Cardiac Output, Continuous (ICD-10-PCS; 2023-08-23)
PROC: 06BP4ZZ Excision of Right Saphenous Vein, Percutaneous Endoscopic Approach (ICD-10-PCS; 2023-08-23)
PROC: 02L70CK Occlusion of Left Atrial Appendage with Extraluminal Device, Open Approach (ICD-10-PCS; 2023-08-23)
PROC: 02100Z9 Bypass Coronary Artery, One Artery from Left Internal Mammary, Open Approach (ICD-10-PCS; 2023-08-23)
PROC: 021109W Bypass Coronary Artery, Two Arteries from Aorta with Autologous Venous Tissue, Open Approach (ICD-10-PCS; 2023-08-23)
PROC: B24BZZ4 Ultrasonography of Heart with Aorta, Transesophageal (ICD-10-PCS; 2023-08-23)
DX: I25.110 Atherosclerotic heart disease of native coronary artery with unstable angina pectoris (principal); Z68.42 Body mass index [BMI] 45.0-49.9, adult; D62 Acute posthemorrhagic anemia; J98.11 Atelectasis; E86.1 Hypovolemia; E87.70 Fluid overload, unspecified; R00.1 Bradycardia, unspecified; E66.01 Morbid (severe) obesity due to excess calories; E11.9 Type 2 diabetes mellitus without complications; I10 Essential (primary) hypertension; E78.5 Hyperlipidemia, unspecified; G47.33 Obstructive sleep apnea (adult) (pediatric); I25.5 Ischemic cardiomyopathy; G89.29 Other chronic pain; M48.00 Spinal stenosis, site unspecified; E88.810 Metabolic syndrome; F32.A Depression, unspecified; F41.9 Anxiety disorder, unspecified; R91.1 Solitary pulmonary nodule; I70.0 Atherosclerosis of aorta; I25.2 Old myocardial infarction; Z95.5 Presence of coronary angioplasty implant and graft; Z98.84 Bariatric surgery status; Z87.891 Personal history of nicotine dependence; Z79.82 Long term (current) use of aspirin; Z79.891 Long term (current) use of opiate analgesic; Z79.4 Long term (current) use of insulin
CPT/HCPCS: 94727; 94729; 36415; 71045; 71046; 80048; 80053; 81003; 82248; 82330; 82565; 82805; 82810; 82947; 82962; 83036; 83735; 84132; 84302; 84520; 85014; 85018; 85025; 85027; 85049; 85610; 85730; 86850; 86900; 86901; 86920; 87070; 88738; 93005; 93312; 93320; 93325; 93880; 94002; 94010; 94060; 94660; 97116; 97163; 97167; 97530; 97535; 99406; C1713; J2916; P9045